=== PATIENT | male | born 1935 | race Caucasian/White ===

== ENCOUNTER → 2018-06-07 | Outpatient (CLI) | payer MEDICARE ==
[2018-06-07 09:54] LABS: HCT 41.5 % (39.0-53.0); HGB 13.5 gm/dL (13.0-17.5); MCHC 32.6 g/dL (31.0-37.0); MCV 98.3 fL (80.0-100.0); Mean Platelet Volume 7.3; Platelet Count 168 k/uL (150-450); RBC 4.22 m/uL (4.30-5.90); RDW 13.7 % (11.5-15.5)
[2018-06-07 10:13] LABS: Magnesium 1.8 mg/dL (1.6-2.3); Potassium 4.9 mmol/L (3.5-5.1)
== END | disposition home or self-care (01) ==
LOC: LABPAT 09:33
PROVIDERS: ATTEND Internal Medicine Interventional Cardiology
DX: Z01.812 Encounter for preprocedural laboratory examination (principal); I35.0 Nonrheumatic aortic (valve) stenosis; R94.39 Abnormal result of other cardiovascular function study; I10 Essential (primary) hypertension; E78.2 Mixed hyperlipidemia
CPT/HCPCS: 36415; 80051; 82565; 82947; 83735; 84520; 85027

== ENCOUNTER 2018-06-17 06:05 | Day surgery (SDC) | payer MEDICARE ==
[2018-06-11 14:05] VITALS: BMI 26.4
[~2018-06-17 06:05] MED LIST: ALPRAZolam 0.25 MG TAB PO PRN; ASPIRIN 325 MG TAB PO ONE
[2018-06-17] MEDS: SODIUM CHLORIDE 0.9% 1,000 ML in EMPTY BAG 1 BAG IV ONE ×2 (06:25→06:30)
[2018-06-17 07:31] VITALS: TEMP 97.9
[2018-06-17 07:34] LABS: Glucose,Whole Blood 160 mg/dL (75-99)
[2018-06-17] MEDS ORDERED: LIDOCAINE 1% INJ 10MG/ML (20 ML MDV) ONE (08:35)
[2018-06-17] MEDS ORDERED: MIDAZOLAM 2 MG/2 ML VIAL ONE (08:35)
[2018-06-17] MEDS ORDERED: VERAPAMIL 2.5 MG/ML 2 ML AMP ONE (08:35)
[2018-06-17] MEDS ORDERED: diphenhydrAMINE 50 MG/ML 1 ML VIAL ONE (08:35)
[2018-06-17] MEDS ORDERED: LIDOCAINE 1% INJ 10MG/ML (20 ML MDV) SQ ONE ×2 (08:55→09:31)
[2018-06-17] MEDS ORDERED: MIDAZOLAM 2 MG/2 ML VIAL IV ONE (08:59)
[2018-06-17] MEDS ORDERED: diphenhydrAMINE 50 MG/ML 1 ML VIAL IVP ONE (08:59)
[2018-06-17] MEDS ORDERED: VERAPAMIL SYRINGE (5 MG/10 ML) INTRAARTER ONE ×2 (08:59→09:41)
[2018-06-17] MEDS ORDERED: HEPARIN SODIUM 1,000 UN/ML (10ML VL) IV ONE (09:00)
[2018-06-17] MEDS ORDERED: NITROGLYCERIN SL TABS 0.4 MG TAB SUBLINGUAL ONE ×2 (09:39→09:40)
[2018-06-17] MEDS ORDERED: IOPAMIDOL-370 100ML BTL INJ ONE (09:41)
[2018-06-17] MEDS ORDERED: RX INFO: IV CONTRAST WAS GIVEN 1 EACH MISC MISCELLANE PRN ×2 (09:46→09:49)
[2018-06-17] MEDS ORDERED: SODIUM CHLORIDE 0.9% 1,000 ML IV SCH (10:00)
--- NOTE | 2018-06-17 11:26 | CC ---
CARDIAC CATHETERIZATION REPORT DATE OF SERVICE: 06/17/2018 PROCEDURE: Left heart catheterization and coronary angiography. PERFORMED BY: Dr. Nir Wen. Moderate conscious sedation time was 49 minutes. The patient was administered Versed and Benadryl and his oxygen saturation, hemodynamics and EKG were were monitored closely. CLINICAL INFORMATION: Mr. Forrest Samayoa is 83-year-old gentleman history of hypertension, hyperlipidemia, type 2 diabetes with mild CKD, who has been having symptoms of exertional shortness of breath and clinically there was evidence of significant change in the aortic valve murmur. In 2013, he had a cardiac cath which revealed no significant obstructive CAD and there was evidence of no gradient across the aortic valve. However, because of a new heart murmur, symptoms of exertional shortness of breath and chest pressure, he was advised coronary angiography and assessment of aortic valve. Risks, benefits, options and rationale were explained. PROCEDURE NOTE: Under local anesthesia and strict aseptic precautions, I placed a 6-Colombian introducer in the right radial artery. I used a JR4 catheter to perform selective coronary angiography of the right coronary artery. There was extreme tortuosity almost like a coil of his arteries in the innominate system. However, I was able to get right coronary injection, but I had a lot of difficulty getting a picture of the left coronary and therefore I switched over to the femoral approach. The sheath was kept in the right radial and I switched over to the right femoral. Under local anesthesia and strict aseptic precautions, a 6-Colombian introducer was placed in the right femoral artery. Using a standard left Susie catheter I performed selective coronary angiography of the left coronary artery and checked LV pressures using a pigtail catheter but did not perform the LV gram. I used about 70 mL of contrast. The sheath was taken out and manual compression used to secure hemostasis. A TR band was applied to the right radial. The patient tolerated procedure well. Saturation of the fingers of the right hand was 97% and good hemostasis was secured in the right femoral sheath. CARDIAC CATHETERIZATION FINDINGS: The left ventricular end-diastolic pressure was 12 mmHg. The gradient across aortic valve on a pullback system was 29 mmHg suggestive of moderate aortic stenosis. CORONARY ANGIOGRAPHY FINDINGS: RIGHT CORONARY ARTERY: This is a codominant vessel has no significant disease in its origin, distally it gives off a PDA branch which is free of significant disease. The PLV branch comes from the circumflex. RCA is a codominant, disease-free vessel that gives off a PDA branch. LEFT MAIN CORONARY ARTERY: This is a short patent vessel that bifurcates immediately into LAD and circumflex. Left main itself is free of significant disease. LEFT ANTERIOR DESCENDING CORONARY ARTERY: Good caliber vessel extends along the anterior wall, gives off septal and diagonal branches, has minor irregularities no significant disease. There is a good-sized diagonal branch in the mid portion that comes off and then the caliber of the vessel decreases and it curves over the apex to supply the inferoapical portion of left ventricle. The LAD has no significant disease, has only minor irregularities. LEFT POSTERIOR CIRCUMFLEX CORONARY ARTERY: This is a codominant vessel gives off a first obtuse marginal and a small second obtuse marginal and distally a PLV branch comes off. The entire circumflex has minor irregularities, no significant disease and this is a codominant vessel. LEFT VENTRICULOGRAM: This was not performed. FINAL IMPRESSION: This patient has a codominant system. No significant coronary artery disease. Normal filling pressures with a moderate aortic stenosis with a peak pullback gradient of 29 mmHg across the aortic valve which represents progression of aortic valve disease, which was not significant in 2014. RECOMMENDATIONS: Findings were discussed with the patient and family. I am recommending that we will pursue medical therapy without intervention and follow aortic valve stenosis noninvasively. I explained to the patient the findings and he will be discharged later today if he remains stable. I will see him in the office on Sunday at 3:45 p.m. MMMARCELLA / LAURENN: [phone] /
[2018-06-17 11:54] VITALS: PULSE 68
[2018-06-17 12:02] VITALS: BP 132/62; RESP 18
== END 2018-06-17 17:23 | disposition home or self-care (01) ==
LOC: CATHCVL 06:05
PROVIDERS: ATTEND Internal Medicine Interventional Cardiology
DX: I35.0 Nonrheumatic aortic (valve) stenosis (principal); R09.89 Other specified symptoms and signs involving the circulatory and respiratory systems; I10 Essential (primary) hypertension; E78.00 Pure hypercholesterolemia, unspecified; E13.22 Other specified diabetes mellitus with diabetic chronic kidney disease; I12.9 Hypertensive chronic kidney disease with stage 1 through stage 4 chronic kidney disease, or unspecified chronic kidney disease; E11.22 Type 2 diabetes mellitus with diabetic chronic kidney disease; N18.9 Chronic kidney disease, unspecified; Z79.84 Long term (current) use of oral hypoglycemic drugs; Z79.82 Long term (current) use of aspirin; Z79.899 Other long term (current) drug therapy
CPT/HCPCS: 93458; C1769 ×3; C1894 ×2; J2250; J1200; J2001; J1644; Q9967

== ENCOUNTER 2019-06-09 10:13 | Observation (INO) | payer MEDICARE ==
[2019-06-09] MEDS ORDERED: ASPIRIN 81 MG PO STA (10:46)
[2019-06-09] MEDS ORDERED: NITROGLYCERIN SL TABS 0.4 MG TAB SUBLINGUAL STA ×3 (10:46)
--- NOTE | 2019-06-09 10:47 | ED ---
General Adult HPI - General Chief complaint: Chest Pain Stated complaint: Chest pressure,Shoulder/arm pain Time Seen by Provider: 06/09/19 10:37 Source: patient, RN notes reviewed Mode of arrival: wheelchair Limitations: no limitations - History of Present Illness Initial comments: Patient is a pleasant 84-year-old male presenting to the emergency Department with chest discomfort. Onset of symptoms was a day or 2 ago. Patient has an ache in his chest with some in the left shoulder as well. Symptoms worsen with exertion. Patient does have some associated dyspnea. Occasional lightheadedness. No nausea or diaphoresis. Symptoms are somewhat similar to previous cardiac problems. Patient also has known valve problem. - Related Data Home Medications Medication Instructions Recorded Confirmed Aspirin 81 mg PO DAILY 02/14/14 06/09/19 Ezetimibe [Zetia] 10 mg PO DAILY 02/14/14 06/09/19 Metoprolol Succinate [Toprol XL] 25 mg PO DAILY 02/14/14 06/09/19 Ramipril [Altace] 5 mg PO DAILY 02/14/14 06/09/19 Rosuvastatin Calcium [Crestor] 5 mg PO HS 02/14/14 06/09/19 Testosterone Cypionate 200 mg IM Q30D 02/14/14 06/09/19 [Depo-Testosterone] glipiZIDE [Glucotrol XL] 2.5 mg PO DAILY 02/14/14 06/09/19 metFORMIN HCL 500 mg PO TID 02/14/14 06/09/19 sitaGLIPtin [Januvia] 100 mg PO DAILY 02/14/14 06/09/19 Glucosam/Dhaval-Msm1/C/Kamar/Bosw 1 tab PO DAILY 06/09/19 06/09/19 [Glucosamine-Chondroitin Tablet] Multivitamins, Thera [Multivitamin 1 tab PO DAILY 06/09/19 06/09/19 (formulary)] Previous Rx's Medication Instructions Recorded amLODIPine BESYLATE [Norvasc] 10 mg PO DAILY #30 tab 02/17/14 Allergies Allergy/AdvReac Type Severity Reaction Status Date / Time flu shot Allergy Unknown Unknown Uncoded 06/09/19 11:00 Review of Systems ROS Statement: Those systems with pertinent positive or pertinent negative responses have been documented in the HPI. ROS Other: All systems not noted in ROS Statement are negative. Constitutional: Denies: fever Eyes: Denies: eye pain ENT: Denies: ear pain Respiratory: Reports: as per HPI. Denies: cough Cardiovascular: Reports: as per HPI, chest pain Endocrine: Reports: fatigue Gastrointestinal: Denies: abdominal pain, nausea Genitourinary: Denies: dysuria Musculoskeletal: Denies: back pain Skin: Denies: rash Neurological: Denies: weakness Past Medical History Past Medical History: Coronary Artery Disease (CAD), Diabetes Mellitus, Hyperlipidemia, Hypertension History of Any Multi-Drug Resistant Organisms: None Reported Past Surgical History: Cholecystectomy, Heart Catheterization, Hernia Repair, Orthopedic Surgery Additional Past Surgical History / Comment(s): carpel tunnel surgery right hand Past Anesthesia/Blood Transfusion Reactions: No Reported Reaction Past Psychological History: No Psychological Hx Reported Smoking Status: Never smoker Past Alcohol Use History: Occasional Past Drug Use History: None Reported - Past Family History Mother Family Medical History: Cancer Additional Family Medical History / Comment(s): Breast General Exam Limitations: no limitations General appearance: alert, in no apparent distress Head exam: Present: atraumatic Eye exam: Present: normal appearance, PERRL ENT exam: Present: normal oropharynx Neck exam: Present: normal inspection Respiratory exam: Present: normal lung sounds bilaterally. Absent: chest wall tenderness Cardiovascular Exam: Present: regular rate, normal rhythm Expanded Peripheral pulses: 2+: Radial (R), Radial (L), Posterior Tibialis (R), Posterior Tibialis (L) GI/Abdominal exam: Present: soft. Absent: tenderness Extremities exam: Present: normal inspection, full ROM. Absent: tenderness, pedal edema, calf tenderness Back exam: Present: normal inspection. Absent: tenderness Neurological exam: Present: alert Psychiatric exam: Present: normal affect, normal mood Skin exam: Present: normal color Course Vital Signs 06/09/19 06/09/19 10:21 10:23 Temperature 98.2 F Pulse Rate 72 Pulse Rate [ 70 Protective Signal Repairer ] Respiratory 18 Rate Blood Pressure 125/67 O2 Sat by Pulse 97 Oximetry - Reevaluation(s) Reevaluation #1: 06/09/19 10:47 Cardiology paged 06/09/19 10:54 Case was discussed with Dr. Chawla who does recommend heparin and nitro paste and will come evaluate the patient. 06/09/19 12:33 Patient reevaluated and resting comfortably in bed. Patient was seen by Dr. Chawla who was not worried about acute findings with the EKG. d Dimer was somewhat elevated and computed tomography scan has been ordered. Dr. Weaver has been paged for admission for [facility] covering for Dr. Gaytan. Patient is updated. Heparin has been started. Medical Decision Making - Lab Data Result diagrams: 06/09/19 11:00 06/09/19 11:00 Lab Results 06/09/19 06/09/19 06/09/19 Range/Units 11:00 11:00 11:00 WBC 7.2 (3.8-10.6) k/uL RBC 4.25 L (4.30-5.90) m/uL Hgb 14.0 (13.0-17.5) gm/dL Hct 41.2 (39.0-53.0) % MCV 97.0 (80.0-100.0) fL MCH 32.9 (25.0-35.0) pg MCHC 33.9 (31.0-37.0) g/dL RDW 15.5 (11.5-15.5) % Plt Count 167 (150-450) k/uL Neutrophils % 70 % Lymphocytes % 19 % Monocytes % 6 % Eosinophils % 3 % Basophils % 1 % Neutrophils # 5.0 (1.3-7.7) k/uL Lymphocytes # 1.4 (1.0-4.8) k/uL Monocytes # 0.4 (0-1.0) k/uL Eosinophils # 0.2 (0-0.7) k/uL Basophils # 0.0 (0-0.2) k/uL PT 10.4 (9.0-12.0) sec INR 1.0 (<1.2) APTT 23.3 (22.0-30.0) sec D-Dimer 1.50 H (<0.60) mg/L FEU Sodium 139 (137-145) mmol/L Potassium 4.8 (3.5-5.1) mmol/L Chloride 103 (98-107) mmol/L Carbon Dioxide 25 (22-30) mmol/L Anion Gap 11 mmol/L BUN 42 H (9-20) mg/dL Creatinine 1.47 H (0.66-1.25) mg/dL Est GFR (CKD-EPI)AfAm 50 (>60 ml/min/1.73 sqM) Est GFR (CKD-EPI)NonAf 44 (>60 ml/min/1.73 sqM) Glucose 170 H (74-99) mg/dL Calcium 9.3 (8.4-10.2) mg/dL Magnesium 2.0 (1.6-2.3) mg/dL Total Bilirubin 0.4 (0.2-1.3) mg/dL AST 27 (17-59) U/L ALT 35 (21-72) U/L Alkaline Phosphatase 71 (38-126) U/L Troponin I (0.000-0.034) ng/mL NT-Pro-B Natriuret Pep pg/mL Total Protein 6.9 (6.3-8.2) g/dL Albumin 4.0 (3.5-5.0) g/dL 06/09/19 06/09/19 Range/Units 11:00 11:00 WBC (3.8-10.6) k/uL RBC (4.30-5.90) m/uL Hgb (13.0-17.5) gm/dL Hct (39.0-53.0) % MCV (80.0-100.0) fL MCH (25.0-35.0) pg MCHC (31.0-37.0) g/dL RDW (11.5-15.5) % Plt Count (150-450) k/uL Neutrophils % % Lymphocytes % % Monocytes % % Eosinophils % % Basophils % % Neutrophils # (1.3-7.7) k/uL Lymphocytes # (1.0-4.8) k/uL Monocytes # (0-1.0) k/uL Eosinophils # (0-0.7) k/uL Basophils # (0-0.2) k/uL PT (9.0-12.0) sec INR (<1.2) APTT (22.0-30.0) sec D-Dimer (<0.60) mg/L FEU Sodium (137-145) mmol/L Potassium (3.5-5.1) mmol/L Chloride (98-107) mmol/L Carbon Dioxide (22-30) mmol/L Anion Gap mmol/L BUN (9-20) mg/dL Creatinine (0.66-1.25) mg/dL Est GFR (CKD-EPI)AfAm (>60 ml/min/1.73 sqM) Est GFR (CKD-EPI)NonAf (>60 ml/min/1.73 sqM) Glucose (74-99) mg/dL Calcium (8.4-10.2) mg/dL Magnesium (1.6-2.3) mg/dL Total Bilirubin (0.2-1.3) mg/dL AST (17-59) U/L ALT (21-72) U/L Alkaline Phosphatase (38-126) U/L Troponin I <0.012 (0.000-0.034) ng/mL NT-Pro-B Natriuret Pep 210 pg/mL Total Protein (6.3-8.2) g/dL Albumin (3.5-5.0) g/dL - Radiology Data Radiology results: image reviewed (Chest x-ray shows no acute process) Critical Care Time Critical Care Time: Yes Total Critical Care Time: 31 Disposition Clinical Impression: Unstable angina pectoris Dis[facility] Is patient prescribed a controlled substance at d/c from ED?: No Referrals: Bull Virgen MD [Primary Care Provider] - 1-2 days Decision Time: 12:35
[2019-06-09] MEDS ORDERED: NITROGLYCERIN OINT 1 INCH/GM PACKET TOPICAL STA (10:53)
[2019-06-09] MEDS ORDERED: HEPARIN SODIUM,PORCINE 5,000 UNIT/ML 1 ML VIAL IV ONE (10:53)
[2019-06-09] MEDS ORDERED: HEPARIN SODIUM,PORCINE 5,000 UNIT/ML 1 ML VIAL IV PRN (10:53)
[2019-06-09] MEDS ORDERED: HEPARIN SOD,PORK IN 0.45% NACL 25,000 UNIT in 0.45% NACL 1 250ML.BAG IV SCH (11:00)
--- NOTE | 2019-06-09 11:24 | XR ---
EXAMINATION TYPE: XR chest 1V portable DATE OF EXAM: 06/09/2019 COMPARISON: 02/14/2014 HISTORY: Left shoulder pain and arm pain as well as chest pain starting yesterday TECHNIQUE: Single frontal view of the chest is obtained. FINDINGS: There is a mildly enlarged cardiac mediastinal silhouette. Mild degenerative changes of th e left shoulder and moderate of the right shoulder. No focal consolidation, pleural effusion or pneum othorax. IMPRESSION: No acute cardiopulmonary process.
[2019-06-09 11:40] LABS: Basophils % (A) 1 %; Eosinophils # (A) 0.2 k/uL (0-0.7); Eosinophils % (A) 3 %; HCT 41.2 % (39.0-53.0); Lymphocytes # (A) 1.4 k/uL (1.0-4.8); Lymphocytes % (A) 19 %; MCH 32.9 pg (25.0-35.0); MCHC 33.9 g/dL (31.0-37.0); Mean Platelet Volume 7.2; Monocytes # (A) 0.4 k/uL (0-1.0); Monocytes % (A) 6 %; Neutrophils % (A) 70 %; Platelet Count 167 k/uL (150-450); RBC 4.25 m/uL (4.30-5.90); RDW 15.5 % (11.5-15.5); WBC 7.2 k/uL (3.8-10.6)
[2019-06-09 11:44] LABS: Prothrombin Time 10.4 sec (9.0-12.0)
[2019-06-09 11:45] LABS: Partial Thromboplastin Time 23.3 sec (22.0-30.0)
[2019-06-09 11:57] LABS: Calcium 9.3 mg/dL (8.4-10.2); Potassium 4.8 mmol/L (3.5-5.1); Total Bilirubin 0.4 mg/dL (0.2-1.3); Total Protein 6.9 g/dL (6.3-8.2)
[2019-06-09 12:09] LABS: D-Dimer 1.5 mg/L FEU (<0.60)
[2019-06-09] MEDS ORDERED: NITROGLYCERIN SL TABS 0.4 MG TAB SUBLINGUAL PRN (12:31)
--- NOTE | 2019-06-09 13:17 | CT ---
EXAMINATION TYPE: CT angio chest DATE OF EXAM: 06/09/2019 COMPARISON: Chest x-ray of the same date HISTORY: chest pain CT DLP: 408.4 mGycm. Automated Exposure Control for Dose Reduction was Utilized. CONTRAST: CTA scan of the thorax is performed with IV Contrast, patient injected with 80 mL of Isovue 300, pulm onary embolism protocol. MIP Images are created on CT scanner and reviewed. FINDINGS: LUNGS: There is minimal bibasilar subsegmental dependent atelectasis and linear pleural parenchymal s carring of the left lung base. No focal consolidation, pleural effusion, or pneumothorax. No suspicio us pulmonary mass. Very mild peribronchial cuffing of the inferior lungs. MEDIASTINUM: There is satisfactory enhancement of the pulmonary artery and its branches, there is no CT evidence for pulmonary embolism. Mild coronary artery calcifications are seen. Heart is mildly enl arged with trace pericardial effusion. There are no greater than 1 cm hilar or mediastinal lymph nod es. OTHER: There is suspected mild degree hepatic steatosis however this finding is limited in evaluatio n in the angiographic phase. Small hiatal hernia seen. Gallbladder surgically absent. Flowing anterio r osteophytes throughout the thoracic spine suggest diffuse idiopathic skeletal hyperostosis. IMPRESSION: 1. No evidence of pulmonary embolus. 2. Minimal bibasilar subsegmental atelectasis or pleural parenchymal scarring with minimal peribronch ial cuffing that may relate to reactive or infectious airway disease. 3. Small hiatal hernia.
[2019-06-09 15:30] VITALS: BMI 26.2
--- NOTE | 2019-06-09 15:51 | P.HPIM ---
History of Present Illness H&P Date: 06/09/19 Chief Complaint: Chest pain The patient is a 84-year-old male with a past medical history of type 2 diabetes, essential hypertension, dyslipidemia, moderate aortic stenosis, CKD stage III who presents to the ER via private vehicle with chief complaint of chest pain. Apparently the patient began having intermittent episodes of left- sided chest discomfort described as pressure achy in sensation with radiation into his shoulder and posterior scapular area with some associated shortness of breath, the patient denies any diaphoresis, nausea/vomiting, denies palpi tations, denies presyncope lightheadedness or dizziness, denies focal weakness or slurred speech. Apparently the patient reports tripping on a staircase over a week ago and fell on his left side but does not take the pain is related to that although stating that pain is worse with movement. Referral records indicates the patient had a left heart catheterization approximately a year ago in 2018 that showed normal coronary arteries and moderate aortic stenosis. In the ER the patient had a comprehensive workup EKG showed sinus mechanism with no suggestion of any acute ischemia troponin was less than 0.012, NT proBNP was 210, creatinine 1.47, d-dimer 1.5. Chest x-ray showed no acute cardiopul monary process. CTA of the chest was negative for PE with minimal bibasilar subsegmental atelectasis or pleural parenchymal scarring. Review of Systems Pertinent positives per HPI all other systems otherwise negative Past Medical History Past Medical History: Coronary Artery Disease (CAD), Chest Pain / Angina, Diabetes Mellitus, Hyperlipidemia, Hypertension, Mitral Valve Prolapse (MVP), Osteoarthritis (OA) Additional Past Medical History / Comment(s): Aortic valve disorder - leaky History of Any Multi-Drug Resistant Organisms: None Reported Past Surgical History: Cholecystectomy, Heart Catheterization, Hernia Repair, Orthopedic Surgery Additional Past Surgical History / Comment(s): carpel tunnel surgery right hand, left knee total replacement Past Anesthesia/Blood Transfusion Reactions: No Reported Reaction Past Psychological History: No Psychological Hx Reported Smoking Status: Never smoker Past Alcohol Use History: Occasional Past Drug Use History: None Reported - Past Family History Mother Family Medical History: Cancer Additional Family Medical History / Comment(s): Breast Medications and Allergies Home Medications Medication Instructions Recorded Confirmed Type Aspirin 81 mg PO DAILY 02/14/14 06/09/19 History Ezetimibe [Zetia] 10 mg PO DAILY 02/14/14 06/09/19 History Metoprolol Succinate [Toprol XL] 25 mg PO DAILY 02/14/14 06/09/19 History Ramipril [Altace] 5 mg PO DAILY 02/14/14 06/09/19 History Rosuvastatin Calcium [Crestor] 5 mg PO HS 02/14/14 06/09/19 History Testosterone Cypionate 200 mg IM Q30D 02/14/14 06/09/19 History [Depo-Testosterone] glipiZIDE [Glucotrol XL] 2.5 mg PO DAILY 02/14/14 06/09/19 History metFORMIN HCL 500 mg PO TID 02/14/14 06/09/19 History sitaGLIPtin [Januvia] 100 mg PO DAILY 02/14/14 06/09/19 History amLODIPine BESYLATE [Norvasc] 10 mg PO DAILY #30 tab 02/17/14 06/09/19 Rx Glucosam/Dhaval-Msm1/C/Kamar/Bosw 1 tab PO DAILY 06/09/19 06/09/19 History [Glucosamine-Chondroitin Tablet] Multivitamins, Thera [Multivitamin 1 tab PO DAILY 06/09/19 06/09/19 History (formulary)] Allergies Allergy/AdvReac Type Severity Reaction Status Date / Time flu shot Allergy Unknown Unknown Uncoded 06/09/19 11:00 Physical Exam Vitals: Vital Signs Temp Pulse Pulse Resp BP BP Pulse Ox 06/09/19 15:02 97.5 F L 56 L 19 112/73 99 06/09/19 14:01 60 18 111/63 97 06/09/19 10:23 70 06/09/19 10:21 98.2 F 72 18 125/67 97 Intake and Output 06/09/19 06/09/19 06/09/19 06:59 14:59 22:59 Other: Weight 90.718 kg Constitutional: No acute distress, conversant, pleasant Eyes: Anicteric sclerae, moist conjunctiva, no lid-lag, PERRLA ENMT: NC/AT,Oropharynx clear, no erythema, exudates Neck:Supple, FROM, no masses, or JVD, No carotid bruits; No thyromegaly Lungs: Clear to auscultation, Clear to percussion, Normal respiratory effort, no accessory muscle use Cardiovascular: Heart regular in rate and rhythm, No murmurs, gallops, or rubs no peripheral edema Abdominal: Soft Nontender, nom distended, no guarding, no rebound or rigidity, Normoactive bowel sounds No hepatomegaly, No splenomegaly, No palpable mass No abdominal wall hernia noted Skin: Normal temperature, tone, texture, turgor, No induration No subcutaneous nodules, No rash, lesions, No ulcers Extremities:No digital cyanosis No clubbing, Pedal pulses intact and symmetrical Radial pulses intact and symmetrical Normal gait and station, No calf tenderness Psychiatric: Alert and oriented to person, place and time, Appropriate affect Intact judgement Neuro: Muscles Strength 5/5 in all 4 extremities, Sensation to light touch grossly present throughout, Cranial nerves II-XII grossly intact. No focal sensory deficits Results CBC & Chem 7: 06/09/19 11:00 06/09/19 11:00 Labs: Abnormal Lab Results - Last 24 Hours (Table) 06/09/19 06/09/19 06/09/19 Range/Units 11:00 11:00 11:00 RBC 4.25 L (4.30-5.90) m/uL D-Dimer 1.50 H (<0.60) mg/L FEU BUN 42 H (9-20) mg/dL Creatinine 1.47 H (0.66-1.25) mg/dL Glucose 170 H (74-99) mg/dL Thrombosis Risk Factor Assmnt - Choose All That Apply Any of the Below Risk Factors Present?: Yes Each Factor Represents 1 point: Obesity (BMI >25) Other Risk Factors: Yes Each Risk Factor Represents 3 Points: Age 75 years or older Other congenital or acquired thrombophilia - If yes, enter type in comment: No Thrombosis Risk Factor Assessment Total Risk Factor Score: 4 Thrombosis Risk Factor Assessment Level: Moderate Risk Assessment and Plan (1) Chest pain Current Visit: Yes Status: Acute Code(s): R07.9 - CHEST PAIN, UNSPECIFIED SNOMED Code(s): 91967723 (2) Type 2 diabetes mellitus with hyperglycemia Current Visit: Yes Status: Acute Code(s): E11.65 - TYPE 2 DIABETES MELLITUS WITH HYPERGLYCEMIA SNOMED Code(s): 627494952531450 (3) Essential hypertension Current Visit: Yes Status: Acute Code(s): I10 - ESSENTIAL (PRIMARY) HYPERT ENSION SNOMED Code(s): 54232472 (4) Hyperlipidemia Current Visit: Yes Status: Acute Code(s): E78.5 - HYPERLIPIDEMIA, UNSPECIFIED SNOMED Code(s): 75625768 (5) Aortic stenosis Current Visit: Yes Status: Chronic Code(s): I35.0 - NONRHEUMATIC AORTIC (VALVE) STENOSIS SNOMED Code(s): 22783826 Plan: The patient's is placed in observation anticipate a less than 2 midnight stay with chest pain with known CAD risk factors with need to rule out ACS. Workup thus far as been negative EKG showing sinus mechanism negative for any acute ischemia initial troponin is also negative less than 0.012. CTA of the chest has ruled out PE. Will order continue to trend troponins, check lipid panel, echocardiogram, consult cardiology for further recommendations. Previous left heart cath 06/25 indicated moderate aortic stenosis but no coronary disease. We'll continue his home medications except for metformin will initiate sliding scale protocol. We'll order a x-ray of the left shoulder given history of trauma. The patient is continued on routine chest pain orders including daily aspirin and is also started on heparin drip from the ER which will be continued. I will continue to monitor his clinical course CODE STATUS: DNI ( CPR only) Discussed plan of care with: Patient and his /daughter Anticipated discharge: 1-[address]; home
--- NOTE | 2019-06-09 16:22 | XR ---
EXAMINATION TYPE: XR shoulder complete LT DATE OF EXAM: 06/09/2019 CLINICAL HISTORY: Left shoulder pain after fall one week ago TECHNIQUE: Three views of the left shoulder are obtained. COMPARISON: None. FINDINGS: There is no acute fracture/dislocation evident in the left shoulder. The acromioclavicula r and glenohumeral joint spaces appear aligned. There is joint space narrowing and small marginal os teophytes of the left acromioclavicular joint and glenohumeral joint. The visualized ribs are intact and unremarkable. IMPRESSION: 1. No acute fracture or dislocation in the left shoulder. 2. 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
[2019-06-09] MEDS ORDERED: metFORMIN 500 MG TAB PO SCH (17:30)
[2019-06-09] MEDS: NITROGLYCERIN OINT 1 INCH/GM PACKET TOPICAL SCH ×2 (18:09→23:23)
[2019-06-09] MEDS ORDERED: ATORVASTATIN 10 MG TAB PO SCH (21:00)
[2019-06-09 21:33] LABS: Glucose,Whole Blood 199 mg/dL (75-99)
[2019-06-09] MEDS ORDERED: LINAGLIPTIN 5 MG TABLET PO SCH (22:00)
[2019-06-09] MEDS ORDERED: EZETIMIBE 10 MG TAB PO SCH (22:00)
--- NOTE | 2019-06-09 22:32 | CONS ---
CONSULTATION CHIEF COMPLAINT: Chest pain. This is an an 84-year-old gentleman with history of coronary artery disease, hypertension, diabetes, dyslipidemia, renal insufficiency, and aortic stenosis who presents to hospital complaining of precordial chest pain. He describes it as sharp, zczb-ru-avmgayuy precordial chest pain that has been going on over the last 2 days with some left shoulder pain. The patient had a cardiac catheterization last year that did not reveal significant coronary artery disease. The patient had moderate aortic stenosis. The EKG shows sinus rhythm with Q-waves in the inferior leads. The patient is chest pain free at the time of my evaluation. He is on IV heparin and nitro paste. PAST MEDICAL HISTORY: Significant for diabetes, hypertension, dyslipidemia. MEDICATIONS: Include Crestor 5 mg daily, metformin, Januvia, Glucotrol, Norvasc, Caltrate,Toprol, Zetia and aspirin. ALLERGIES: FLU SHOT. FAMILY HISTORY: Negative for premature coronary artery disease. SOCIAL HISTORY: Negative for current smoking, EtOH abuse, or drug abuse. REVIEW OF SYSTEMS: HEENT is unremarkable. Cardiac as described above. Respiratory as described above. GI negative. Genitourinary negative. Allergy negative. Skin negative. Musculoskeletal significant for arthritis. Psychosocial negative. Endocrine negative. Constitutional negative. Oncological negative. Rest of the system review is not relevant. EXAM: He is comfortable at rest. Vital signs are stable. There is no jugular venous distention. Carotid upstroke is normal. There is no bruit. Chest exam reveals good air entry bilaterally. Heart exam reveals first and second heart sounds. Grade 4/6 ejection systolic murmur in the aortic area. Abdomen is soft. Exam of the extremities did not reveal any edema. Peripheral pulses are palpable. EKG shows sinus rhythm with left axis deviation. ASSESSMENT: 1. Precordial chest pain. 2. Moderate aortic stenosis. 3. Elevated D-dimer. PLAN: The patient had normal coronaries on a cardiac catheterization within the last 1 year. I doubt this chest discomfort is cardiac in origin. While he has aortic stenosis, it is not bad enough to be causing symptoms at this time. Please obtain a V/Q scan given the elevated D-dimer. Watch him overnight. If he is doing fine tomorrow, we should be able to discharge him home and arrange outpatient followup with Dr. Nir Wen. MMODL / IJN: [id number] /
[2019-06-10] MEDS: NITROGLYCERIN OINT 1 INCH/GM PACKET TOPICAL SCH (06:31)
[2019-06-10 06:35] LABS: Basophils % (A) 1 %; Eosinophils # (A) 0.3 k/uL (0-0.7); Eosinophils % (A) 5 %; HGB 12.9 gm/dL (13.0-17.5); Lymphocytes # (A) 1.7 k/uL (1.0-4.8); Lymphocytes % (A) 24 %; MCH 32.3 pg (25.0-35.0); MCHC 33.1 g/dL (31.0-37.0); MCV 97.6 fL (80.0-100.0); Mean Platelet Volume 7.6; Monocytes # (A) 0.5 k/uL (0-1.0); Monocytes % (A) 7 %; Neutrophils # (A) 4.4 k/uL (1.3-7.7); Neutrophils % (A) 62 %; Platelet Count 162 k/uL (150-450); RDW 15.3 % (11.5-15.5); WBC 7.1 k/uL (3.8-10.6)
[2019-06-10 06:53] LABS: Glucose,Whole Blood 171 mg/dL (75-99)
[2019-06-10 07:27] LABS: Cholesterol 105 mg/dL (<200); HDL Cholesterol 48 mg/dL (40-60); LDL Cholesterol,Calculated 42 mg/dL (0-99); Triglycerides 76 mg/dL (<150)
[2019-06-10 07:33] VITALS: BP 146/74; PULSE 63; RESP 17; TEMP 97.7
--- NOTE | 2019-06-10 08:49 | P.PN ---
Progress Note - Text Progress Note Date: 06/10/19 This is an 84-year-old gentleman who sees Dr. Wen in the office as an outpatient with a past medical history significant for coronary artery disease, aortic stenosis, hypertension, and dyslipidemia, who was admitted to the hospital with atypical chest discomfort and ruled out for acute coronary event. He underwent a heart catheterization a year ago and that revealed no evidence of occlusive CAD. On follow-up with the patient today, he seems to be asymptomatic from the cardiovascular standpoint overview. From the cardiac standpoint, the patient can be discharged home and follow-up with Dr. Wen as an outpatient.
[2019-06-10] MEDS ORDERED: LINAGLIPTIN 5 MG TABLET PO SCH (09:00)
[2019-06-10] MEDS ORDERED: amLODIPine 10 MG TAB PO SCH (09:00)
[2019-06-10] MEDS ORDERED: EZETIMIBE 10 MG TAB PO SCH (09:00)
[2019-06-10] MEDS ORDERED: ASPIRIN 325 MG TAB PO SCH (09:00)
[2019-06-10] MEDS ORDERED: METOPROLOL SUCCINATE (ER) 25 MG TAB.ER.24H PO SCH (09:00)
[2019-06-10] MEDS ORDERED: LISINOPRIL 20 MG TAB PO SCH (09:00)
--- NOTE | 2019-06-10 09:22 | P.DS ---
Providers Date of admission: 06/09/19 13:27 Expected date of discharge: 06/10/19 Attending physician: Maryam Good MD Consults: 06/09/19 12:31 Consult Physician Urgent Consulting Provider: Nicolás Cohen Consult Reason/Comments: ua Do you want consulting provider notified?: Already Contacted Primary care physician: Bull Virgen - Discharge Diagnosis(es) (1) Chest pain Current Visit: Yes Status: Acute (2) Type 2 diabetes mellitus with hyperglycemia Current Visit: Yes Status: Acute (3) Essential hypertension Current Visit: Yes Status: Acute (4) Hyperlipidemia Current Visit: Yes Status: Acute (5) Aortic stenosis Current Visit: Yes Status: Chronic Hospital Course: The patient is a 84-year-old male with a past medical history of essential hypertension , dyslipidemia , type 2 diabetes tand moderate aortic stenosis hat was admitted with atypical chest pain. His workup was essentially negative his EKG showed sinus mechanism without any suggestion of acute ischemia, troponins were negative at less than 0.0123. The patient is known to have elevated d-dimer subsequent CTA of the chest was negative for PE. But echocardiogram was ordered and results are pending, the patient was seen by cardiology Dr. Crandall and cleared for discharge back home. The patient is discharged in stable condition this discharge process took approximately 30 minutes. Focused exam cardiovascular: Regular rate and rhythm, holosystolic ejection murmur Patient Condition at Discharge: Good Plan - Discharge Summary Discharge Rx Participant: No New Discharge Prescriptions: Continue metFORMIN HCL 500 mg PO TID Metoprolol Succinate [Toprol XL] 25 mg PO DAILY sitaGLIPtin [Januvia] 100 mg PO DAILY glipiZIDE [Glucotrol XL] 2.5 mg PO DAILY Rosuvastatin Calcium [Crestor] 5 mg PO HS Ramipril [Altace] 5 mg PO DAILY Aspirin 81 mg PO DAILY Testosterone Cypionate [Depo-Testosterone] 200 mg IM Q30D Ezetimibe [Zetia] 10 mg PO DAILY amLODIPine BESYLATE [Norvasc] 10 mg PO DAILY #30 tab Multivitamins, Thera [Multivitamin (formulary)] 1 tab PO DAILY Glucosam/Dhaval-Msm1/C/Kamar/Bosw [Glucosamine-Chondroitin Tablet] 1 tab PO DAILY Discharge Medication List Aspirin 81 mg PO DAILY 02/14/14 [History] Ezetimibe [Zetia] 10 mg PO DAILY 02/14/14 [History] Metoprolol Succinate [Toprol XL] 25 mg PO DAILY 02/14/14 [History] Ramipril [Altace] 5 mg PO DAILY 02/14/14 [History] Rosuvastatin Calcium [Crestor] 5 mg PO HS 02/14/14 [History] Testosterone Cypionate [Depo-Testosterone] 200 mg IM Q30D 02/14/14 [History] glipiZIDE [Glucotrol XL] 2.5 mg PO DAILY 02/14/14 [History] metFORMIN HCL 500 mg PO TID 02/14/14 [History] sitaGLIPtin [Januvia] 100 mg PO DAILY 02/14/14 [History] amLODIPine BESYLATE [Norvasc] 10 mg PO DAILY #30 tab 02/17/14 [Rx] Glucosam/Dhaval-Msm1/C/Kamar/Bosw [Glucosamine-Chondroitin Tablet] 1 tab PO DAILY 06/09/19 [History] Multivitamins, Thera [Multivitamin (formulary)] 1 tab PO DAILY 06/09/19 [History] Follow up Appointment(s)/Referral(s): Bull Virgen MD [Primary Care Provider] - 1-2 days
--- NOTE | 2019-06-10 11:36 | ECHOF ---
Referral Reason:chest pain, mod MEASUREMENTS -------- HEIGHT: 180.3 cm WEIGHT: 90.7 kg BP: RVIDd: 3.4 cm (< 3.3) IVSd: 1.6 cm (0.6 - 1.1) LVIDd: 2.9 cm (3.9 - 5.3) LVPWd: 1.5 cm (0.6 - 1.1) IVSs: 2.0 cm LVIDs: 2.1 cm LVPWs: 2.2 cm LA Diam: 2.9 cm (2.7 - 3.8) LAESV Index (A-L): 41.34 ml/m Ao Diam: 3.8 cm (2.0 - 3.7) MV EXCURSION: 12.364 mm (> 18.000) MV EF SLOPE: 19 mm/s (70 - 150) EPSS: 1.0 cm MV E Dale: 1.03 m/s MV DecT: 360 ms MV A Dale: 1.55 m/s MV E/A Ratio: 0.66 AV maxP.89 mmHg AV meanP.85 mmHg AR PHT: 951 ms RAP: 5.00 mmHg RVSP: 31.73 mmHg FINDINGS -------- Resting bradycardia (HR<60bpm). This was a technically adequate study. The left ventricular size is normal. There is moderate concentric left ventricular hypertrophy. O verall left ventricular systolic function is normal with, an EF between 60 - 65 %. Diastolic dysfun ction The right ventricle is mildly enlarged. LA is severely dilated >40 ml/m2 The right atrium is normal in size. Interatrial and interventricular septum intact. There is moderate aortic valve sclerosis. There is moderate aortic regurgitation. There is modera te aortic stenosis present. Peak/mean gradient across the Aortic Valve is 51.89mmHg / 33.85mmHg. The mitral valve leaflets are mildly thickened. Moderate mitral annular calcification present. T he peak and mean MV gradients are 14.25mmHg 3.77mmHg as measured by doppler. Mild mitral stenosis. Bgyv-bc-euyiswlc tricuspid regurgitation present. Right ventricular systolic pressure is normal at < 35 mmHg. Trace/mild (physiologic) pulmonic regurgitation. The aortic root is dilated measuring 3.8cm. Normal inferior vena cava with normal inspiratory collapse consistent with estimated right atrial pre ssure of 5 mmHg. There is no pericardial effusion. CONCLUSIONS -------- 1. Resting bradycardia (HR<60bpm). 2. This was a technically adequate study. 3. The left ventricular size is normal. 4. There is moderate concentric left ventricular hypertrophy. 5. Overall left ventricular systolic function is normal with, an EF between 60 - 65 %. 6. Diastolic dysfunction 7. The right ventricle is mildly enlarged. 8. LA is severely dilated >40 ml/m2 9. The right atrium is normal in size. 10. Interatrial and interventricular septum intact. 11. There is moderate aortic valve sclerosis. 12. There is moderate aortic regurgitation. 13. There is moderate aortic stenosis present. 14. Peak/mean gradient across the Aortic Valve is 51.89mmHg / 33.85mmHg. 15. The mitral valve leaflets are mildly thickened. 16. The peak and mean MV gradients are 14.25mmHg 3.77mmHg as measured by doppler. 17. Mild mitral stenosis. 18. Eotc-ec-hvblobgr tricuspid regurgitation present. 19. Right ventricular systolic pressure is normal at < 35 mmHg. 20. Trace/mild (physiologic) pulmonic regurgitation. 21. The aortic root is dilated measuring 3.8cm. 22. Normal inferior vena cava with normal inspiratory collapse consistent with estimated right atrial pressure of 5 mmHg. 23. There is no pericardial effusion. FINISHED CARPET INSPECTOR: Vicki Trotter RDCS
== END 2019-06-10 11:07 ==
LOC: EC 10:13 → 1SOBS 13:27
PROVIDERS: ADMIT Family Medicine; ATTEND Family Medicine
DX: R07.89 Other chest pain (principal); R79.89 Other specified abnormal findings of blood chemistry; I12.9 Hypertensive chronic kidney disease with stage 1 through stage 4 chronic kidney disease, or unspecified chronic kidney disease; N18.3 Chronic kidney disease, stage 3 (moderate); E11.22 Type 2 diabetes mellitus with diabetic chronic kidney disease; I25.10 Atherosclerotic heart disease of native coronary artery without angina pectoris; I08.0 Rheumatic disorders of both mitral and aortic valves; E78.5 Hyperlipidemia, unspecified; E11.65 Type 2 diabetes mellitus with hyperglycemia; M19.012 Primary osteoarthritis, left shoulder; K44.9 Diaphragmatic hernia without obstruction or gangrene; E66.9 Obesity, unspecified; Z68.27 Body mass index [BMI] 27.0-27.9, adult; Z79.82 Long term (current) use of aspirin; Z79.84 Long term (current) use of oral hypoglycemic drugs; Z79.899 Other long term (current) drug therapy; Z88.7 Allergy status to serum and vaccine; Z90.49 Acquired absence of other specified parts of digestive tract; Z91.81 History of falling; Z96.652 Presence of left artificial knee joint; Z80.3 Family history of malignant neoplasm of breast
CPT/HCPCS: 96366 ×3; 96376 ×2; 96365; 99291; 36415; 93005; 93306; 85379; 83880; 80061; 80053; 83735; 84484; 85025 ×2; 85610; 85730 ×2; 73030; 71045; 71275; G0378 ×2; J1644 ×2; Q9967

== ENCOUNTER 2019-06-17 07:56 | Day surgery (SDC) | payer MEDICARE ==
[2019-06-16 09:10] VITALS: BMI 28.3
[~2019-06-17 07:56] MED LIST changes: +ALPRAZolam 0.5 MG TAB PO PRN; -ASPIRIN 325 MG TAB PO ONE; +ASPIRIN 325 MG TAB PO STA; +ATORVASTATIN 80 MG TAB PO STA; +NITROGLYCERIN SL TABS 0.4 MG TAB SUBLINGUAL PRN
[2019-06-17] MEDS ORDERED: SODIUM CHLORIDE 0.9% 1,000 ML in EMPTY BAG 1 BAG IV ONE (08:00)
[2019-06-17 08:32] VITALS: PULSE 64; RESP 20; TEMP 97.9
[2019-06-17 08:42] LABS: Glucose,Whole Blood 202 mg/dL (75-99)
[2019-06-17] MEDS ORDERED: LIDOCAINE 1% INJ 10MG/ML (20 ML MDV) ONE (12:03)
[2019-06-17] MEDS ORDERED: MIDAZOLAM PF (FBP) 2 MG/2 ML VIAL IVP ONE (12:31)
[2019-06-17] MEDS ORDERED: LIDOCAINE 1% INJ 10MG/ML (20 ML MDV) SQ ONE (12:37)
[2019-06-17] MEDS ORDERED: IOPAMIDOL-370 100ML BTL INJ ONE (12:54)
[2019-06-17 13:46] LABS: Glucose,Whole Blood 152 mg/dL (75-99)
[2019-06-17] MEDS ORDERED: RX INFO: IV CONTRAST WAS GIVEN 1 EACH MISC MISCELLANE PRN (14:00)
[2019-06-17 18:14] LABS: Glucose,Whole Blood 261 mg/dL (75-99)
[2019-06-17] MEDS ORDERED: INSULIN ASPART (NovoLOG) 100 UNIT/ML VIAL SQ ONE (18:33)
[2019-06-17 19:30] VITALS: BP 145/70
--- NOTE | 2019-06-17 20:52 | CC ---
CARDIAC CATHETERIZATION REPORT DATE OF SERVICE: 06/17/2019 PROCEDURE: Left heart catheterization and coronary angiography. PERFORMED BY: Dr. Nir Wen. CLINICAL INFORMATION: Mr. Forrest Samayoa is an 84-year-old gentleman with history of mild to moderate aortic stenosis, and no significant CAD. He came into the office with complaints of chest tightness and pressure. He was recently in the hospital and discharged with. He had a negative troponins. He continued to have chest pressure with activity radiating to both upper extremities. He was advised coronary angiography after extensive discussion with the patient and and family regarding risks, benefits, and options. He understood all details and wished to proceed with the procedure. PROCEDURE NOTE: Under local anesthesia and strict aseptic precautions, a 6-Maori introducer was placed in the right femoral artery. Using standard Susie catheters, I performed coronary angiography and a pigtail catheter was used to check LV pressure but LV gram was not performed. Sheath was taken out and manual compression used to secure hemostasis. He was sent to the room in stable condition. ANESTHESIA: Moderate conscious sedation time was 22 minutes. Patient administered Versed. His oxygen saturation, hemodynamics and EKG were monitored closely. CARDIAC CATHETERIZATION FINDINGS: The left ventricle end-diastolic pressure was about 12 mmHg and there was no gradient across aortic valve. CORONARY ANGIOGRAPHY FINDINGS: RIGHT CORONARY ARTERY: Large dominant, disease-free vessel that has no significant disease and distally it continues as a PDA branch. This appears to be more or less a codominant vessel. PLV seems to come off from the circumflex. RCA has no significant disease. LEFT MAIN CORONARY ARTERY: Short vessel, no significant disease, immediately bifurcates into LAD and circumflex. LEFT ANTERIOR DESCENDING CORONARY ARTERY: Good caliber vessel extends along the anterior wall, gives off septal and diagonal branches, has minor irregularities. No significant disease. Runs all the way to the apex, supplies a sizable amount of myocardium. LEFT POSTERIOR CIRCUMFLEX CORONARY ARTERY: This is a codominant vessel, gives off a single obtuse marginal proximally and other 2 small obtuse marginals and distally continues as a posterolateral branch, has no significant disease, has minor irregularities. This is a good size, good caliber and good distribution circumflex vessel. Left ventriculogram was not performed. Left ventricular end-diastolic pressure was about 8 mmHg and there was a gradient of about 25 mmHg across the aortic valve on pullback pressures. FINAL IMPRESSION: This patient has mild to moderate aortic stenosis with a gradient of 25 mmHg across the aortic valve on a pullback. End-diastolic pressure is about 8-9 mmHg. The patient has a codominant system. No significant obstructive coronary artery disease. RECOMMENDATIONS: Findings were discussed with the patient and family. Continued medical therapy with risk factor modification advised. Patient can be discharged later today after full hemostasis is secured. We will see him in the office in the next 7-10 days. MMODL / IJN: [id number] /
== END 2019-06-17 19:10 | disposition home or self-care (01) ==
LOC: CATHCVL 07:56
PROVIDERS: ATTEND Internal Medicine Interventional Cardiology
DX: I35.0 Nonrheumatic aortic (valve) stenosis (principal); I20.0 Unstable angina; I10 Essential (primary) hypertension; E11.9 Type 2 diabetes mellitus without complications; E78.5 Hyperlipidemia, unspecified; E78.00 Pure hypercholesterolemia, unspecified; Z79.84 Long term (current) use of oral hypoglycemic drugs; Z79.82 Long term (current) use of aspirin; Z79.890 Hormone replacement therapy; Z79.899 Other long term (current) drug therapy
CPT/HCPCS: 93458; C1769 ×3; C1894; J2001; Q9967; J2250

== ENCOUNTER 2019-07-11 18:20 | Emergency (ER) | payer MEDICARE ==
[2019-07-11 18:40] VITALS: BP 152/77; PULSE 68; RESP 16; TEMP 97.9
[2019-07-11] MEDS ORDERED: DIPH,PERTUS(ACELL)TETVAC-LF 0.5 ML VIAL IM ONE (19:44)
[2019-07-11] MEDS ORDERED: LIDOCAINE 1% INJ 10MG/ML (20 ML MDV) SQ ONE (19:44)
--- NOTE | 2019-07-11 20:41 | ED ---
Wound/Laceration HPI - General Source: patient Mode of arrival: ambulatory Limitations: no limitations <Soledad Frank - Last Filed: 07/12/19 19:44> <Lars Cuevasah Yehuda - Last Filed: 07/15/19 22:56> - General Chief Complaint: Wound/Laceration Stated Complaint: wrist lac Time Seen by Provider: 07/11/19 19:27 - History of Present Illness Initial Comments: 84-year-old male presenting for evaluation of wrist laceration. Patient states he was trimming plants with a razor when he accidentally cut his left wrist he states that it was vertical and does not appear very deep however it would not stop bleeding he states that this occurred at 3 PM. When it persisted to bleed into the afternoon patient felt he needed to come to emergency department for suture repair. Patient states the bleeding has slowed down since he has arrived in the emergency department. Patient is unsure of his last tetanus. Patient denies any numbness tingling loss sensation decreased range of motion or pallor of the extremity. Patient denies any other areas of laceration. Patient denies any suicidal ideations or intentional harm. Remaining review of system negative. Upon arrival patient appears well no signs of acute distress. (Soledad Frank) - Related Data Home Medications Medication Instructions Recorded Confirmed Aspirin 81 mg PO DAILY 02/14/14 06/17/19 Ezetimibe [Zetia] 10 mg PO DAILY 02/14/14 06/16/19 Metoprolol Succinate [Toprol XL] 25 mg PO DAILY 02/14/14 06/16/19 Ramipril [Altace] 5 mg PO DAILY 02/14/14 06/16/19 Rosuvastatin Calcium [Crestor] 5 mg PO HS 02/14/14 06/16/19 Testosterone Cypionate 200 mg IM Q30D 02/14/14 06/17/19 [Depo-Testosterone] glipiZIDE [Glucotrol XL] 2.5 mg PO DAILY 02/14/14 06/16/19 metFORMIN HCL 500 mg PO TID 02/14/14 06/17/19 sitaGLIPtin [Januvia] 100 mg PO DAILY 02/14/14 06/16/19 Glucosam/Dhaval-Msm1/C/Kamar/Bosw 1 tab PO DAILY 06/09/19 06/16/19 [Glucosamine-Chondroitin Tablet] Multivitamins, Thera [Multivitamin 1 tab PO DAILY 06/09/19 06/16/19 (formulary)] [place]-3 Fatty Acids/Fish Oil 1 each PO DAILY 06/16/19 06/16/19 [[place]-3 Fish Oil 1,200 mg Sfgl] Previous Rx's Medication Instructions Recorded amLODIPine BESYLATE [Norvasc] 10 mg PO DAILY #30 tab 02/17/14 Allergies Allergy/AdvReac Type Severity Reaction Status Date / Time flu shot Allergy Unknown Unknown Uncoded 07/11/19 18:40 Review of Systems ROS Other: All systems not noted in ROS Statement are negative. <Soledad Frank - Last Filed: 07/12/19 19:44> ROS Other: All systems not noted in ROS Statement are negative. <Jacquelyn Cuevas - Last Filed: 07/15/19 22:56> ROS Statement: Those systems with pertinent positive or pertinent negative responses have been documented in the HPI. Past Medical History Past Medical History: Coronary Artery Disease (CAD), Chest Pain / Angina, Diabetes Mellitus, Hyperlipidemia, Hypertension, Osteoarthritis (OA) Additional Past Medical History / Comment(s): Aortic valve disorder - leaky History of Any Multi-Drug Resistant Organisms: None Reported Past Surgical History: Cholecystectomy, Heart Catheterization, Hernia Repair, Orthopedic Surgery Additional Past Surgical History / Comment(s): carpel tunnel surgery right hand, left knee total replacement Past Anesthesia/Blood Transfusion Reactions: No Reported Reaction Past Psychological History: No Psychological Hx Reported Smoking Status: Never smoker Past Alcohol Use History: None Reported Past Drug Use History: None Reported - Past Family History Mother Family Medical History: Cancer Additional Family Medical History / Comment(s): Breast <Soledad Frank - Last Filed: 07/12/19 19:44> General Exam Limitations: no limitations <Soledad Frank - Last Filed: 07/12/19 19:44> - General Exam Comments Initial Comments: General: The patient is awake and alert, in no distress, and does not appear acutely ill. Eye: +3 mm pupils are equal, round and reactive to light, extra-ocular movements are intact. No nystagmus. There is normal conjunctiva bilaterally. No signs of icterus. Cardiovascular: There is a regular rate and rhythm. No murmur, rub or gallop is appreciated. Respiratory: Lungs are clear to auscultation, respirations are non-labored, breath sounds are equal. No wheezes, stridor, rales, or rhonchi. Musculoskeletal: Normal ROM, no tenderness. Strength 5/5. Sensation intact. Radial pulses equal bilaterally 2+. Neurological: A&O x 3. CN II-XII intact grossly, There are no obvious motor or sensory deficits. Coordination appears grossly intact. Speech is normal. Skin: Skin is warm and dry and no rashes. Laceration of left ventral aspect vertical, appears superifical no exposure of tendon. no FB. 2.5cm. No wrist drop Psychiatric: Cooperative, appropriate mood & affect, normal judgment. (Soledad Frank) Course Vital Signs 07/11/19 18:38 Temperature 97.9 F Pulse Rate 68 Respiratory 16 Rate Blood Pressure 152/77 O2 Sat by Pulse 98 Oximetry Procedures - Laceration Laceration #1 Consent Obtained: verbal consent Indication: laceration Site: upper extremity Size (cm): 3 (2.5) Description: linear Depth: simple, single layer Anesthetic Used: lidocaine 1% Anesthesia Technique: local infiltration Amount (mls): 3 Pre-repair: wound explored, irrigated extensively, deep structures intact Type of Sutures: nylon Size of Sutures: 4-0 Number of Sutures: 7 Technique: simple, interrupted Patient Tolerated Procedure: well, no complications <Soledad Frank - Last Filed: 07/12/19 19:44> - Laceration Laceration #1 Additional Comments: irrigated, cleansed with iodine. (Soledad Frank) Medical Decision Making <Soledad Frank - Last Filed: 07/12/19 19:44> <Jacquelyn Cuevas - Last Filed: 07/15/19 22:56> - Medical Decision Making Very well-appearing 84-year-old male presented for left wrist laceration. Patient has superficial laceration approximately 2.5 cm on physical examination. No evidence of exposure of underlying structures or foreign body. Patient's tetanus is updated in the emergency department. Patient neurovascularly intact. Strong pulses with capillary refill less than 3 seconds of the affected extremity. After wound was extensively cleansed and irrigated wound edges were approximated using 7 nylon 4.0 sutures.Patient tolerated procedure well. At this time after discussing the case with attending provider I feel patient is stable for discharge with outpatient PCP f/u adn return for sutrue removal in 7-10 days. (Soledad Frank) I was available for consultation in the emergency department. The history and physical exam were done by the midlevel provider. I was consulted for this patients care. I reviewed the case with the midlevel provider and based on their presentation of the patient, I agree with the assessment, medical decision making and plan of care as documented. Chart was dictated using [employer] dictation software. Attempts were made to correct any dictation errors however some typographical errors may persist. (Jacquelyn Cuevas) Disposition Is patient prescribed a controlled substance at d/c from ED?: No Time of Disposition: 20:41 <Soledad Frank - Last Filed: 07/12/19 19:44> <Jacquelyn Cuevas - Last Filed: 07/15/19 22:56> Clinical Impression: Laceration of left wrist Disposition: HOME SELF-CARE Condition: Good Instructions (If sedation given, give patient instructions): Care For Your Stitches (ED), Laceration (ED) Additional Instructions: Please use medication as discussed. Please follow-up for suture removal here in ER in 7-10 days. Please return to emergency room if the symptoms increase or worsen or for any other concerns, redness, swelling, drainage, increasing pain. Referrals: Bull Virgen MD [Primary Care Provider] - 1-2 days
== END 2019-07-11 20:55 | disposition home or self-care (01) ==
LOC: EC 18:20
DX: S61.512A Laceration without foreign body of left wrist, initial encounter (principal); I25.119 Atherosclerotic heart disease of native coronary artery with unspecified angina pectoris; E11.9 Type 2 diabetes mellitus without complications; E78.5 Hyperlipidemia, unspecified; I10 Essential (primary) hypertension; M19.90 Unspecified osteoarthritis, unspecified site; Z79.82 Long term (current) use of aspirin; Z79.84 Long term (current) use of oral hypoglycemic drugs; Z79.899 Other long term (current) drug therapy; Z23 Encounter for immunization; Z88.7 Allergy status to serum and vaccine; Z95.5 Presence of coronary angioplasty implant and graft; Z96.652 Presence of left artificial knee joint; W26.8XXA Contact with other sharp object(s), not elsewhere classified, initial encounter; Y93.H2 Activity, gardening and landscaping
CPT/HCPCS: 99282; 90471; 12001; 90715; J2001

== ENCOUNTER 2021-01-26 06:54 | Day surgery (SDC) | payer MEDICARE ==
[2021-01-20 15:17] VITALS: BMI 25.0
[~2021-01-26 06:54] MED LIST changes: +HEPARIN SODIUM,PORCINE 10,000 UNIT in SODIUM CHLORIDE 0.9% 1,000 ML IRRIGATION PRN; +HEPARIN SODIUM,PORCINE 2,500 UNIT in SODIUM CHLORIDE 0.9% 250 ML IRRIGATION PRN; +SODIUM CHLORIDE 0.9% 1,000 ML in EMPTY BAG 1 BAG IV ONE
[2021-01-26] MEDS ORDERED: SODIUM CHLORIDE 0.9% 1,000 ML IV ONE ×3 (07:28→12:04)
[2021-01-26 07:50] LABS: Glucose,Whole Blood 135 mg/dL (75-99)
[2021-01-26 08:02] VITALS: TEMP 98
[2021-01-26 08:15] LABS: Calcium 9.1 mg/dL (8.4-10.2)
[2021-01-26 08:17] LABS: Potassium 4.9 mmol/L (3.5-5.1)
[2021-01-26] MEDS ORDERED: fentaNYL (PF) 50 MCG/ML 2 ML AMP ONE (08:33)
[2021-01-26] MEDS: BENZOCAINE SPRAY 1 CAN TOPICAL ONE ×2 (08:51→09:14)
[2021-01-26] MEDS: MIDAZOLAM 2 MG/2 ML VIAL IV ONE ×2 (08:52→09:14)
[2021-01-26] MEDS ORDERED: fentaNYL (PF) 50 MCG/ML 2 ML AMP IV ONE (08:54)
[2021-01-26] MEDS ORDERED: MIDAZOLAM 2 MG/2 ML VIAL IV ONE (09:17)
[2021-01-26 09:29] VITALS: RESP 12
[2021-01-26] MEDS ORDERED: LIDOCAINE 1% INJ 10MG/ML (20 ML MDV) ONE (10:23)
--- NOTE | 2021-01-26 10:52 | P.TEE ---
Date of Procedure: 01/26/21 Description of Procedure(s): TRANSESOPHAGEAL ECHOCARDIOGRAM APPRENTICE COSMETOLOGIST: ALEXIS PRIETO MD, RPVI INDICATION: Aortic stenosis SEDATION: Conscious sedation with sedation in length of 15 minutes COMPLICATION: None PROCEDURE DESCRIPTION: After obtaining an informed consent, the patient was brought to transesophageal echocardiogram room. Pulse oximetry and heart monitors were attached to the patient. The patient throat was sprayed using lidocaine. The patient was turned into left lateral position. After that a bite guard was placed. After an appropriate conscious sedation was initiated, the transesophageal echocardiogram was advanced through a bite guard into the mid esophagus. A 2-D echocardiogram images, color Doppler images, continuous wave images, pulse-wave images, of various cardiac structure were performed. After that the transesophageal echocardiogram probe was advanced into the stomach and fixed to obtain transgastric view was. The probe was brought into the mid esophagus. Inter-atrial septum was interrogated using 2D images, color Doppler images, and then contrast study. After that transesophageal echocardiogram was withdrawn out and upon withdrawing the descending thoracic aorta all the way up to the arch was evaluated. FINDING: The left ventricular dimension and systolic function appeared to be within normal limits with ejection fraction appears to be in the range of 50-55%. The right ventricle appeared to be of normal size and function with the left atrium appears to be dilated. The left atrial appendage appeared to be intact without any evidence of thrombus. The interatrial septum appeared to be intact as well without any evidence of shunt. The aortic valve is thickened and calcified but the valve appeared to be trileaflet valve we obtained a planimetry aortic valve area of 1.5 cm and a peak gradient of 75 and mean gradient of 42 mmHg, finding consistent with severe aortic stenosis. The mitral valve seems to be also very thickened and calcified with evidence of moderate mitral regurgitation. There is moderate tricuspid regurgitation seen and mild pulmonic insufficiency. No evidence of pericardial effusion. The aortic root appeared to be mildly dilated. CONCLUSION: #1 severe aortic stenosis by area and gradient. The aortic valve area was 1.5 cm and a mean gradient was 42 mmHg #2 mildly dilated aortic root #3 thickened anterior and posterior mitral leaflets with moderate mitral regurgitation #4 mild to moderate tricuspid regurgitation #5 mild pulmonic insufficiency #6 normal left ventricular dimension and systolic function #7 normal right ventricular dimension and systolic function #8 no evidence of pericardial effusion
[2021-01-26] MEDS ORDERED: MIDAZOLAM 2 MG/2 ML VIAL IVP ONE (11:21)
[2021-01-26] MEDS ORDERED: LIDOCAINE 1% INJ 10MG/ML (20 ML MDV) SQ ONE (11:24)
[2021-01-26 11:56] LABS: O2 Sat Blood Gas 73.4 %
[2021-01-26 11:56] LABS: O2 Sat Blood Gas 74.6 %
[2021-01-26 11:57] LABS: O2 Sat Blood Gas 95.7 %
[2021-01-26] MEDS ORDERED: IOPAMIDOL-370 100ML BTL INJ ONE (12:03)
[2021-01-26] MEDS ORDERED: SODIUM CHLORIDE 0.9% 1,000 ML IV SCH (14:00)
--- NOTE | 2021-01-26 14:51 | CC ---
CARDIAC CATHETERIZATION REPORT DATE OF SERVICE: 01/26/2021. PROCEDURE: Right and left heart catheterization, coronary angiography. PERFORMED BY: Dr. Nir Wen. Moderate conscious sedation time was 45 minutes. Patient was administered Versed. Oxygen saturation, hemodynamics and EKG were monitored closely. CLINICAL INFORMATION: Mr. Forrest Samayoa is an 85-year-old gentleman with a known history of aortic stenosis. He also has hypertension, hyperlipidemia, type 2 diabetes. Because of a significant increase in gradient on the transthoracic echo and symptoms of shortness of breath, I recommended cardiac cath and transesophageal echo. The TE echo revealed moderate to severe aortic stenosis. He had a previous cardiac cath in 2019 which did not reveal significant obstructive CAD. He was brought in for the procedure electively after due discussion regarding risks, benefits, and options. PROCEDURE NOTE: Under local anesthesia and strict aseptic precautions, a 6-Cypriot introducer was placed in the right femoral artery. An 8-Cypriot introducer was placed in the right femoral vein. Right heart catheterization was performed. Hemodynamics obtained. Thermodilution cardiac output was obtained. Subsequently, coronary angiography was performed using standard Susie catheters and a pigtail catheter was used to check LV pressures and LV-gram was not performed. The sheath was taken out and manual compression used to secure hemostasis and he was sent to the room in stable condition. Results were discussed with the patient and his daughter. CARDIAC CATHETERIZATION FINDINGS: The right atrial pressure was 2 mmHg. Right ventricular pressure was 22/2. Pulmonary artery pressure was 22/5 with a mean of 11. Pulmonary capillary wedge pressure was 5 mmHg. The left ventricular end-diastolic pressure was 10 mmHg. The peak gradient between the aorta and left ventricle was about 28 mmHg. The thermodilution cardiac output was 5.5 L and Julian cardiac output was 7.5 L. The femoral arterial saturation was 95% and pulmonary arterial saturation was 74%. The findings above translated to moderate aortic stenosis. CORONARY ANGIOGRAPHY FINDINGS: RIGHT CORONARY ARTERY: This is a technically dominant vessel. Good caliber, good distribution. Distally gives off a PDA but not PLV branch. PDA is free of significant disease, supplies a fair amount of myocardium. LEFT MAIN CORONARY ARTERY: Very short vessel that immediately bifurcates into LAD and circumflex. No significant disease. There is mild calcification noted. LEFT ANTERIOR DESCENDING CORONARY ARTERY: Good caliber vessel extends along the anterior wall. In the distal 1/4 of the vessel, there is some diffuse disease, but otherwise LAD has really no significant disease. It gives off a diagonal branch in the midportion, free of significant disease. The distal half of the LAD has mild diffuse disease. Diagonal and the proximal half of LAD are completely free of significant disease. LEFT POSTERIOR CIRCUMFLEX CORONARY ARTERY: Technically a nondominant vessel, gives off one obtuse marginal proximally, 2 small ones in the middle and distally continues as a posterolateral branch, has minor irregularities, no significant disease. LEFT VENTRICULOGRAM: The left ventriculogram was not performed. FINAL IMPRESSION: This patient has a right dominant system, noncritical coronary artery disease with diffuse disease in the distal half of the LAD of no more than 40%. The circumflex is free of significant disease. RCA is free of significant disease. Left main is free of significant disease. Aortic stenosis appears to be moderate with a gradient of less than 30 mmHg across the aortic valve. The end-diastolic pressure is normal. Thermodilution and Julian cardiac outputs are normal. RECOMMENDATIONS: Findings were discussed with the patient and daughter. For now I am recommending continued medical therapy and based on his clinical progress, will make further recommendations down the road. For now, medical therapy is advised. No surgical intervention or percutaneous aortic valve intervention at this time. MMODL / IJN: [id number] /
[2021-01-26 17:20] VITALS: PULSE 69
[2021-01-26 17:21] VITALS: BP 135/62
== END 2021-01-26 18:10 | disposition home or self-care (01) ==
LOC: CATHCVL 06:54
PROVIDERS: ATTEND Internal Medicine Interventional Cardiology
DX: I08.3 Combined rheumatic disorders of mitral, aortic and tricuspid valves (principal); I25.110 Atherosclerotic heart disease of native coronary artery with unstable angina pectoris; I10 Essential (primary) hypertension; E78.5 Hyperlipidemia, unspecified; E11.9 Type 2 diabetes mellitus without complications; R09.89 Other specified symptoms and signs involving the circulatory and respiratory systems; E78.00 Pure hypercholesterolemia, unspecified; Z79.84 Long term (current) use of oral hypoglycemic drugs; Z79.82 Long term (current) use of aspirin; Z79.890 Hormone replacement therapy; Z79.899 Other long term (current) drug therapy
CPT/HCPCS: 93312; 93320; 93325; 93460; 80048; 85018; 82810; 87635; C1769 ×3; C1894 ×2; J2250; J2001; J3010; Q9967

== ENCOUNTER 2021-04-05 23:59 | Observation (INO) | payer MEDICARE ==
[2021-04-06 00:07] VITALS: RESP 18
--- NOTE | 2021-04-06 00:38 | XR ---
EXAMINATION TYPE: XR chest 2V DATE OF EXAM: 04/06/2021 COMPARISON: NONE HISTORY: Shoulder pain TECHNIQUE: 2 views FINDINGS: Heart and mediastinum are normal. Lungs are clear. Diaphragm is normal. Bony thorax is inta ct. There are chest leads. Costophrenic angles are clear. IMPRESSION: No active cardiopulmonary disease. Normal heart. No change.
[2021-04-06 00:48] LABS: Albumin 3.8 g/dL (3.5-5.0); Calcium 8.9 mg/dL (8.4-10.2); INR 0.9 (<1.2); Magnesium 1.9 mg/dL (1.6-2.3); Partial Thromboplastin Time 23.7 sec (22.0-30.0); Potassium 4.1 mmol/L (3.5-5.1); Prothrombin Time 10.1 sec (9.0-12.0); Total Bilirubin 0.3 mg/dL (0.2-1.3); Total Protein 6.5 g/dL (6.3-8.2)
[2021-04-06 00:51] LABS: Basophils # (A) 0.1 k/uL (0-0.2); Basophils % (A) 1 %; Eosinophils # (A) 1.3 k/uL (0-0.7); Eosinophils % (A) 10 %; HCT 39.2 % (39.0-53.0); HGB 13.5 gm/dL (13.0-17.5); Lymphocytes # (A) 1.8 k/uL (1.0-4.8); Lymphocytes % (A) 14 %; MCH 33.8 pg (25.0-35.0); MCHC 34.6 g/dL (31.0-37.0); MCV 97.7 fL (80.0-100.0); Mean Platelet Volume 7.1; Monocytes # (A) 0.9 k/uL (0-1.0); Monocytes % (A) 7 %; Neutrophils # (A) 8.7 k/uL (1.3-7.7); Neutrophils % (A) 67 %; Platelet Count 187 k/uL (150-450); RBC 4.01 m/uL (4.30-5.90); RDW 13.7 % (11.5-15.5)
--- NOTE | 2021-04-06 01:19 | ED ---
Chest Pain HPI - General Chief Complaint: Chest Pain Stated Complaint: Back/Chest Pain Time Seen by Provider: 04/06/21 00:12 Source: patient, family Mode of arrival: ambulatory Limitations: no limitations - History of Present Illness Initial Comments: This patient is a 86-year-old man who presents to be evaluated for symptoms to the left chest, left neck and left arm that is been going on intermittently for approximately 2 days now. Patient states the pain as an aching. He has not noted worsening or relieving factors. He has not noted any associated anginal symptoms. At time of history and physical there are no symptoms present. MD Complaint: chest pain Onset/Timin -: days(s) Pain Location: left chest Pain Radiation: LUE, neck Severity: mild Quality: aching Consistency: intermittent Improves With: nothing Worsens With: nothing Treatments Prior to Arrival: none - Related Data Home Medications Medication Instructions Recorded Confirmed Aspirin 81 mg PO HS 02/14/14 04/06/21 Metoprolol Succinate [Toprol XL] 25 mg PO HS 02/14/14 04/06/21 Rosuvastatin Calcium [Crestor] 5 mg PO HS 02/14/14 04/06/21 Testosterone Cypionate 200 mg IM Q14D 02/14/14 04/06/21 [Depo-Testosterone] metFORMIN HCL 500 mg PO AC-SUPPER 02/14/14 04/06/21 Canagliflozin [Invokana] 300 mg PO QAM 01/20/21 04/06/21 Dulaglutide [Trulicity] 1.5 mg SQ MO 01/20/21 04/06/21 Ramipril [Altace] 5 mg PO HS 04/06/21 04/06/21 metFORMIN HCL [Glucophage] 1,000 mg PO QAM 04/06/21 04/06/21 Allergies Allergy/AdvReac Type Severity Reaction Status Date / Time flu shot AdvReac Unknown Unknown Uncoded 04/06/21 06:51 Review of Systems ROS Statement: Those systems with pertinent positive or pertinent negative responses have been documented in the HPI. ROS Other: All systems not noted in ROS Statement are negative. Constitutional: Denies: fever, weakness ENT: Denies: throat pain Respiratory: Denies: cough, dyspnea Cardiovascular: Reports: as per HPI, chest pain. Denies: palpitations, orthopnea, edema, syncope Gastrointestinal: Denies: abdominal pain, nausea, vomiting, diarrhea Genitourinary: Denies: dysuria, hematuria Musculoskeletal: Denies: back pain Skin: Denies: rash Neurological: Denies: headache, weakness, numbness EKG Findings - EKG Results: EKG: interpreted by CONI, sinus rhythm (With PVCs, rate 90 bpm), normal axis, normal QRS, normal ST/T Past Medical History Past Medical History: Coronary Artery Disease (CAD), Chest Pain / Angina, Diabetes Mellitus, Hyperlipidemia, Hypertension, Osteoarthritis (OA) Additional Past Medical History / Comment(s): Aortic valve disorder - leaky History of Any Multi-Drug Resistant Organisms: None Reported Past Surgical History: Cholecystectomy, Heart Catheterization, Hernia Repair, J oint Replacement, Orthopedic Surgery Additional Past Surgical History / Comment(s): carpel tunnel surgery right hand, left knee total replacement Past Anesthesia/Blood Transfusion Reactions: No Reported Reaction Past Psychological History: No Psychological Hx Reported Smoking Status: Never smoker Past Alcohol Use History: Occasional Past Drug Use History: None Reported - Past Family History Mother Family Medical History: Cancer Additional Family Medical History / Comment(s): Breast General Exam Limitations: no limitations General appearance: alert, in no apparent distress Head exam: Present: atraumatic, normocephalic Eye exam: Present: normal appearance. Absent: scleral icterus, conjunctival injection Neck exam: Present: normal inspection, full ROM. Absent: tenderness Respiratory exam: Present: normal lung sounds bilaterally. Absent: respiratory distress, wheezes, rales, rhonchi, stridor, chest wall tenderness Cardiovascular Exam: Present: regular rate, normal rhythm, systolic murmur (Is a grade 4/6 harsh systolic ejection murmur, insistent with aortic stenosis). Absent: diastolic murmur, rubs, gallop GI/Abdominal exam: Present: soft. Absent: distended, tenderness, guarding, rebound, rigid, mass Extremities exam: Present: normal inspection, normal capillary refill. Absent: pedal edema, calf tenderness Back exam: Present: normal inspection. Absent: CVA tenderness (R), CVA tenderness (L) Neurological exam: Present: alert Skin exam: Present: warm, dry, intact, normal color. Absent: rash Course Vital Signs 04/06/21 04/06/21 04/06/21 00:00 03:00 06:00 Temperature 97.6 F Pulse Rate 81 76 71 Respiratory 18 18 18 Rate Blood Pressure 158/76 133/82 131/76 O2 Sat by Pulse 97 96 98 Oximetry 04/06/21 04/06/21 08:00 11:19 Temperature 98.2 F 98 F Pulse Rate 71 73 Respiratory 18 18 Rate Blood Pressure 139/75 120/70 O2 Sat by Pulse 97 98 Oximetry Disposition Clinical Impression: Chest pain Disposition: ADMITTED IP TO THIS HOSP Condition: Stable Is patient prescribed a controlled substance at d/c from ED?: No
[2021-04-06] MEDS ORDERED: NON FORMULARY DRUG (Dulaglutide [Trulicity] 1.5 MG/0.5 ML Pen.Injctr) SQ SCH (02:00)
--- NOTE | 2021-04-06 05:46 | P.HPIM ---
History of Present Illness H&P Date: 04/06/21 Chief Complaint: Chest pain 86-year-old male with hypertension and hyperlipidemia severe aortic stenosis Patient comes in complaining of left shoulder pain radiating to left arm and left neck and left side of the chest. He claimed that this been going on for couple days no specific precipitating or alleviating factor. He then doing some yard work over the past couple days. He comes in today due to worsening of that pain if her bedtime made him worry why the pain has not resolved over the past couple days and been getting worse despite taking Aleve which normally takes care of his joint aches and make him relax. 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 Upon reviewing patient's chart he had a left heart cath 2 months ago and recommendations of the time was to pursue medical management there was no significant disease. However patient does have severe aortic valve stenosis but he denies any dizziness lightheadedness or syncope or near-syncope. Patient is an avid biker he does bike long distances on regular basis with no limitations. Blood work overall was unremarkable creatinine elevated but stable Review of Systems Pertinent positives as noted in HPI. All other systems were reviewed and are negative Past Medical History Past Medical History: Coronary Artery Disease (CAD), Chest Pain / Angina, Diabetes Mellitus, Hyperlipidemia, Hypertension, Osteoarthritis (OA) Additional Past Medical History / Comment(s): Aortic valve disorder - leaky History of Any Multi-Drug Resistant Organisms: None Reported Past Surgical History: Cholecystectomy, Heart Catheterization, Hernia Repair, Joint Replacement, Orthopedic Surgery Additional Past Surgical History / Comment(s): carpel tunnel surgery right hand, left knee total replacement Past Anesthesia/Blood Transfusion Reactions: No Reported Reaction Past Psychological History: No Psychological Hx Reported Smoking Status: Never smoker Past Alcohol Use History: Occasional Past Drug Use History: None Reported - Past Family History Mother Family Medical History: Cancer Additional Family Medical History / Comment(s): Breast Medications and Allergies Home Medications Medication Instructions Recorded Confirmed Type Aspirin 81 mg PO DAILY 02/14/14 01/26/21 History Metoprolol Succinate [Toprol XL] 25 mg PO DAILY 02/14/14 01/26/21 History Rosuvastatin Calcium [Crestor] 5 mg PO HS 02/14/14 01/26/21 History Testosterone Cypionate 200 mg IM Q30D 02/14/14 01/26/21 History [Depo-Testosterone] metFORMIN HCL 500 mg PO AC-SUPPER 02/14/14 01/26/21 History Multivitamins, Thera [Multivitamin 1 tab PO DAILY 06/09/19 01/26/21 History (formulary)] Shamrock-3 Fatty Acids/Fish Oil 1 each PO DAILY 06/16/19 01/26/21 History [Sh[place]rock-3 Fish Oil 1,200 mg Sfgl] Ascorbic Acid [Vitamin C] 500 mg PO DAILY 01/20/21 01/26/21 History Canagliflozin [Invokana] 300 mg PO DAILY 01/20/21 01/26/21 History Dulaglutide [Trulicity] 1.5 mg SQ Q7D 01/20/21 01/26/21 History Pioglitazone [Actos] 15 mg PO DAILY 01/20/21 01/26/21 History metFORMIN HCL 1,000 mg PO DAILY 01/20/21 01/26/21 History Ezetimibe [Zetia] 10 mg PO DAILY 01/26/21 01/26/21 History Allergies Allergy/AdvReac Type Severity Reaction Status Date / Time flu shot Allergy Unknown Unknown Uncoded 04/06/21 00:07 Physical Exam Vitals: Vital Signs Temp Pulse Resp BP Pulse Ox 04/06/21 03:00 76 18 133/82 96 04/06/21 00:00 97.6 F 81 18 158/76 97 Intake and Output 04/05/21 04/05/21 04/06/21 14:59 22:59 06:59 Other: Weight 86.183 kg Constitutional: No acute distress, conversant, pleasant Eyes: Anicteric sclerae, moist conjunctiva, Pupils equal round reactive to light ENMT: NC/AT Oropharynx clear, no erythema, or exudates Neck: Supple, FROM, no masses, or JVD No carotid bruits No thyromegaly Lungs: Clear to auscultation Clear to percussion Normal respiratory effort, no accessory muscle use Cardiovascular: Heart regular in rate and rhythm, Systolic murmurs, no gallops, or rubs No peripheral edema Abdominal: Soft Nontender, no guarding, rebound or rigidity Abdomen moving with respiration Normoactive bowel sounds No hepatomegaly, No splenomegaly No palpable mass No abdominal wall hernia noted Skin: Normal temperature, tone, texture, turgor No induration No subcutaneous nodules No rash, lesions No ulcers Extremities: No digital cyanosis No clubbing Pedal pulses intact and symmetrical Radial pulses intact and symmetrical No calf tenderness Psychiatric: Alert and oriented to person, place and time Appropriate affect fair judgement Neuro Muscles Strength 5/5 in all 4 extremities Sensation to light touch grossly present throughout Cranial nerves II-XII grossly intact No focal sensory deficits Lymphatics: no palpable cervical or supraclavicular , or inguinal lymph nodes Results CBC & Chem 7: 04/06/21 00:27 04/06/21 00:27 Labs: Abnormal Lab Results - Last 24 Hours (Table) 04/06/21 04/06/21 Range/Units 00: 00:27 WBC 13.0 H (3.8-10.6) k/uL RBC 4.01 L (4.30-5.90) m/uL Neutrophils # 8.7 H (1.3-7.7) k/uL Eosinophils # 1.3 H (0-0.7) k/uL Sodium 136 L (137-145) mmol/L BUN 34 H (9-20) mg/dL Creatinine 1.49 H (0.66-1.25) mg/dL Glucose 185 H (74-99) mg/dL Assessment and Plan Assessment: Left-sided shoulder pain radiating to the neck arm and chest most likely musculoskeletal rule out acute coronary syndrome Trend troponins Cardiac monitoring Cardiology consult EKG no acute ST changes Initial troponins negative Resume home medications aspirin and statin Patient was counseled that this is unlikely to be related to his heart given the fact that he had a left heart cath 2 months ago showed no significant disease however patient was adamant about staying in the hospital to see his solar pool heating installer due to concerns regarding his aortic valve stenosis Chronic conditions Severity valve stenosis Hypertension Hyperlipidemia Diabetes mellitus Resume home medications Full code Anticipated length of stay less than 2 midnights Anticipated discharge to home DVT prophylaxis mechanical
[2021-04-06 08:42] LABS: Glucose,Whole Blood 149 mg/dL (75-99)
[2021-04-06] MEDS ORDERED: NON FORMULARY DRUG (Omega-3 Fatty Acids/Fish Oil [Omega-3 Fish Oil 1,200 Mg Sfgl] 1 EACH C PO SCH (09:00)
[2021-04-06] MEDS ORDERED: MULTIVITAMINS, THERA 1 EACH TAB PO SCH (09:00)
[2021-04-06] MEDS ORDERED: METOPROLOL SUCCINATE (ER) 25 MG TAB.ER.24H PO SCH (09:00)
[2021-04-06] MEDS ORDERED: ASPIRIN 81 MG PO SCH (09:00)
[2021-04-06] MEDS ORDERED: metFORMIN 500 MG TAB PO SCH ×2 (09:00→17:30)
[2021-04-06] MEDS ORDERED: EZETIMIBE 10 MG TAB PO SCH (09:00)
[2021-04-06] MEDS ORDERED: NON FORMULARY DRUG (Canagliflozin [Invokana] 300 MG Tablet) PO SCH (09:00)
[2021-04-06] MEDS ORDERED: ASCORBIC ACID 500 MG TAB PO SCH (09:00)
[2021-04-06] MEDS ORDERED: PIOGLITAZONE 15 MG TAB PO SCH (09:00)
--- NOTE | 2021-04-06 09:54 | P.DS ---
<Mike Gaona - Last Filed: 04/06/21 13:10> Providers Expected date of discharge: 04/06/21 Hospital Course: Discharge Diagnosis: Atypical chest pain, acute coronary event ruled out Left shoulder pain Hypertension Hyperlipidemia Aortic stenosis Type II [id number]-oyenzrffy diabetes mellitus Hospital Course: Patient is an 86-year-old male with a past medical history of hypertension, hyperlipidemia, aortic stenosis, and type II [id number]-[id number] diabetes mellitus. He presented to the emergency department this morning with a chief complaint of chest pain and left shoulder pain. Patient reports mild left shoulder pain radiating into his left anterior chest and neck beginning approximately 2 hours prior to arrival. He was seen and fully evaluated in the emergency department. Chest x-ray was negative for acute cardiopulmonary process. EKG showing sinus rhythm at 90 bpm with frequent PVCs, no T-wave or ST abnormalities noted showing no signs of acute ischemia. Patient was seen and fully evaluated by cardiology and an acute coronary event was ruled out. Patient reports significant improvement of left shoulder pain stating only mild irritation with movement but has full range of motion and no weakness. Patient cleared by cardiology and is medically stable for discharge home at this time. 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 He denied currently having any chest pain, palpitations, shortness of breath, dyspnea with exertion, or experiencing any numbness/tingling/weakness in his extremities. Patient ambulatory without assistance in room without any difficulties noted. Vital signs reviewed and stable. General: Nontoxic, no distress and appears stated age. Derm: Skin warm and dry, normal coloration for ethnicity. Head: Atraumatic, normocephalic and symmetric. Eyes: EOMs intact, no lid lag, and anicteric sclera Mouth: no lip lesions, mucus membranes moist Cardiovascular: regular rate and rhythm with normal S1S2, no murmur, positive posterior tibial pulses bilaterally, and cap refill < 2 seconds. Lungs: Respirations even, regular, and unlabored on room air. Lungs CTA bilaterally, no rhonchi, no rales, no wheezing, and no accessory muscle usage. Abdominal: soft, nontender to palpation, no guarding, no appreciable organomegaly Ext: ROM intact. No gross muscle atrophy, no edema, no contractures Neuro: Speech clear, face symmetrical and CN II-XII grossly intact with no noted focal neuro deficits Psych: Alert and oriented to person, place, time, and situation. Appropriate and pleasant affect. A total of 45 minutes of time were spent preparing this complex discharge summary. Patient Condition at Discharge: Stable Plan - Discharge Summary New Discharge Prescriptions: Continue metFORMIN HCL 500 mg PO AC-SUPPER Metoprolol Succinate [Toprol XL] 25 mg PO HS Rosuvastatin Calcium [Crestor] 5 mg PO HS Aspirin 81 mg PO HS Testosterone Cypionate [Depo-Testosterone] 200 mg IM Q14D Dulaglutide [Trulicity] 1.5 mg SQ MO metFORMIN HCL [Glucophage] 1,000 mg PO QAM Canagliflozin [Invokana] 300 mg PO QAM Ramipril [Altace] 5 mg PO HS Discharge Medication List Aspirin 81 mg PO HS 02/14/14 [History] Metoprolol Succinate [Toprol XL] 25 mg PO HS 02/14/14 [History] Rosuvastatin Calcium [Crestor] 5 mg PO HS 02/14/14 [History] Testosterone Cypionate [Depo-Testosterone] 200 mg IM Q14D 02/14/14 [History] metFORMIN HCL 500 mg PO AC-SUPPER 02/14/14 [History] Canagliflozin [Invokana] 300 mg PO QAM 01/20/21 [History] Dulaglutide [Trulicity] 1.5 mg SQ MO 01/20/21 [History] Ramipril [Altace] 5 mg PO HS 04/06/21 [History] metFORMIN HCL [Glucophage] 1,000 mg PO QAM 04/06/21 [History] Follow up Appointment(s)/Referral(s): Haydee Wen MD [STAFF PHYSICIAN] - 2 Weeks Stuart Castro MD [Primary Care Provider] - 1-2 days Activity/Diet/Wound Care/Special Instructions: Activity: As tolerated Diet: Heart healthy diet Special Instructions: Please follow up with Dr. Castro in 1-2 days and cardiololgy, Dr. Wen in 2 weeks. Thank you Discharge Disposition: HOME SELF-CARE <Bernadine Clayton - Last Filed: 04/06/21 19:50> Providers Date of admission: 04/06/21 01:49 Attending physician: Maryan Ramires MD Consults: 04/06/21 01:49 Consult Physician Routine Consulting Provider: Haydee Wen Consult Reason/Comments: chest pain Do you want consulting provider notified?: Yes Primary care physician: Stuart Castro MD Hospital Course: Mike Gaona NP rendered care for this patient independently, reviewed the findings and plan as documented in the note above. I did not physically speak with or examine the patient on this date. Seen by my partner same date
[2021-04-06 11:21] VITALS: BP 120/70; PULSE 73; TEMP 98
--- NOTE | 2021-04-06 11:45 | P.CRDCN ---
History of Present Illness History of present illness: HISTORY OF PRESENTING ILLNESS This is a pleasant 86-year-old male past medical history significant for severe aortic stenosis, dyslipidemia, type 2 diabetes, hypertension. He follows in the office with Dr. Wen. We have been asked to see in consultation for chest pain. Patient is seen and examined in the emergency Department, no acute distress. Patient states that he started having left shoulder pain yesterday and was ranging to his left arm, left neck, left chest area. He states that he's been having this for couple days. It worsens with movement. He denies any injury however he thinks that maybe when he was reaching for something that maybe he hurt his arm. His pain is nonexertional. He has no associated symptoms. No associated palpitations, shortness of breath, fatigue, weakness, lightheadedness, dizziness, syncope, diaphoresis. He states that he's just been concerned about chest pain with his aortic stenosis and states that he is just worried if anything is going on with his heart. He denies any symptoms of orthopnea or PND. He is a nonsmoker. He does occasionally take Aleve and this does help relieve the pain. He recently underwent cardiac catheterization on 01/26/2021 which revealed noncritical disease in the distal half the LAD of no more than 40%. Circumflex and RCA. 8 disease. No pulmonary hypertension, normal cardiac output, no shunt. Aortic stenosis appears to be moderately gradient of less than 30 mmHg. MALIA on revealed an EF of 50-55%, severe aortic stenosis with a mean gradient of 40 mmHg, mildly dilated aortic root, moderate mitral regurgitation, mild to moderate tricuspid regurgitation. DIAGNOSTICS EKG reveals sinus rhythm, frequent PVCs, heart rate 90, nonspecific ST ST-T wave abnormalities.. Chest xray no acute cardiopulmonary process. Laboratory reviewed, troponin negative 3, sodium 136, potassium 4.1, BUN 34, s gabo creatinine 1.49, magnesium 1.9, COVID-19 negative, WBC 13, hemoglobin 13.5, platelets 27 REVIEW OF SYSTEMS At the time of my exam: CONSTITUTIONAL: Denies fever or chills. CARDIOVASCULAR: + left sided chest pain, Denies shortness of breath, orthopnea, PND or palpitations. RESPIRATORY: Denies cough. GASTROINTESTINAL: Denies abdominal pain, diarrhea, constipation, nausea or vomiting. MUSCULOSKELETAL: +left neck pain and left sided shoulder pain with movement NEUROLOGIC: Denies numbness, tingling, headacbe or weakness. ENDOCRINE: Denies fatigue, weight change, polydipsia or polyurina. GENITOURINARY: Denies burning, hematuria or urgency with micturation. HEMATOLOGIC: Denies history of anemia or bleeding. PHYSICAL EXAMINATION Blood pressure 139/75 heart rate 71, febrile and maintaining oxygen saturation 98% on room air CONSTITUTIONAL: No apparent distress. HEENT: Head is normocephalic. Pupils are equal, round. Sclerae anicteric. Mucous membranes of the mouth are moist. No JVD. +Bilateral bruit CHEST EXAMINATION: Lungs are clear to auscultation. Chest tenderness with deep breathing HEART EXAMINATION: Regular rate and rhythm. S1, S2 heard. Systolic murmur ABDOMEN: Soft, nontender. Positive bowel sounds. EXTREMITIES: 2+ peripheral pulses, no lower extremity edema and no calf tenderness. SKIN: intact NEUROLOGIC EXAMINATION: Patient is awake, alert and oriented x3. ASSESSMENT Left sided chest, shoulder and neck pain, likely musculoskeltal. acute coronary syndrome has been ruled out Severe aortic stenosis Dyslipidemia Type 2 diabetes Hypertension. PLAN An acute coronary event has been ruled out with no EKG evidence of ischemia and negative cardiac enzymes. From cardiology perspective, patient's pain appears to be musculoskeletal. No further testing at this time. Patient is stable from a cardiology perspective. Patient should follow-up with Dr. Wen in the office Continue home cardiac medications Thank you kindly for this consultation. Nurse Practitioner note has been reviewed, I agree with a documented findings and plan of care. Patient was seen and examined. Past Medical History Past Medical History: Coronary Artery Disease (CAD), Chest Pain / Angina, Diabetes Mellitus, Hyperlipidemia, Hypertension, Osteoarthritis (OA) Additional Past Medical History / Comment(s): Aortic valve disorder - leaky History of Any Multi-Drug Resistant Organisms: None Reported Past Surgical History: Cholecystectomy, Heart Catheterization, Hernia Repair, Joint Replacement, Orthopedic Surgery Additional Past Surgical History / Comment(s): carpel tunnel surgery right hand, left knee total replacement Past Anesthesia/Blood Transfusion Reactions: No Reported Reaction Past Psychological History: No Psychological Hx Reported Smoking Status: Never smoker Past Alcohol Use History: Occasional Past Drug Use History: None Reported - Past Family History Mother Family Medical History: Cancer Additional Family Medical History / Comment(s): Breast Medications and Allergies Home Medications Medication Instructions Recorded Confirmed Type Aspirin 81 mg PO HS 02/14/14 04/06/21 History Metoprolol Succinate [Toprol XL] 25 mg PO HS 02/14/14 04/06/21 History Rosuvastatin Calcium [Crestor] 5 mg PO HS 02/14/14 04/06/21 History Testosterone Cypionate 200 mg IM Q14D 02/14/14 04/06/21 History [Depo-Testosterone] metFORMIN HCL 500 mg PO AC-SUPPER 02/14/14 04/06/21 History Canagliflozin [Invokana] 300 mg PO QAM 01/20/21 04/06/21 History Dulaglutide [Trulicity] 1.5 mg SQ MO 01/20/21 04/06/21 History Ramipril [Altace] 5 mg PO HS 04/06/21 04/06/21 History metFORMIN HCL [Glucophage] 1,000 mg PO QAM 04/06/21 04/06/21 History Allergies Allergy/AdvReac Type Severity Reaction Status Date / Time flu shot AdvReac Unknown Unknown Uncoded 04/06/21 06:51 Physical Exam Vitals: Vital Signs Temp Pulse Resp BP Pulse Ox 04/06/21 06:00 71 18 131/76 98 04/06/21 03:00 76 18 133/82 96 04/06/21 00:00 97.6 F 81 18 158/76 97 Intake and Output 04/05/21 04/06/21 04/06/21 22:59 06:59 14:59 Other: Weight 86.183 kg Results 04/06/21 00:27 04/06/21 00:27 Cardiac Enzymes 04/06/21 04/06/21 04/06/21 Range/Units 00:27 00:27 03:39 AST 28 (17-59) U/L Troponin I <0.012 <0.012 (0.000-0.034) ng/mL Coagulation 04/06/21 Range/Units 00:27 PT 10.1 (9.0-12.0) sec APTT 23.7 (22.0-30.0) sec CBC 04/06/21 Range/Units 00:27 WBC 13.0 H (3.8-10.6) k/uL RBC 4.01 L (4.30-5.90) m/uL Hgb 13.5 (13.0-17.5) gm/dL Hct 39.2 (39.0-53.0) % Plt Count 187 (150-450) k/uL Comprehensive Metabolic Panel 04/06/21 Range/Units 00:27 Sodium 136 L (137-145) mmol/L Potassium 4.1 (3.5-5.1) mmol/L Chloride 104 (98-107) mmol/L Carbon Dioxide 23 (22-30) mmol/L BUN 34 H (9-20) mg/dL Creatinine 1.49 H (0.66-1.25) mg/dL Glucose 185 H (74-99) mg/dL Calcium 8.9 (8.4-10.2) mg/dL AST 28 (17-59) U/L ALT 26 (4-49) U/L Alkaline Phosphatase 116 (38-126) U/L Total Protein 6.5 (6.3-8.2) g/dL Albumin 3.8 (3.5-5.0) g/dL Current Medications Generic Name Dose Route Start Last Admin Trade Name Freq PRN Reason Stop Dose Admin Ascorbic Acid 500 mg 04/06/21 09:00 Ascorbic Acid 500 Mg Tab PO DAILY [facility] Aspirin 81 mg 04/06/21 09:00 Aspirin 81 Mg PO DAILY [facility] Atorvastatin Calcium 10 mg 04/06/21 21:00 Atorvastatin 10 Mg Tab PO HS [facility] Ezetimibe 10 mg 04/06/21 09:00 Ezetimibe 10 Mg Tab PO DAILY [facility] Metformin HCl 500 mg 04/06/21 17:30 Metformin 500 Mg Tab PO AC-SUPPER [facility] Metformin HCl 1,000 mg 04/06/21 09:00 Metformin 500 Mg Tab PO DAILY [facility] Metoprolol Succinate 25 mg 04/06/21 09:00 Metoprolol Succinate (Er) 25 Mg Tab.Er.24h PO DAILY [facility] Multivitamins 1 each 04/06/21 09:00 Multivitamins, Thera 1 Each Tab PO DAILY [facility] Non-Formulary Medication 300 mg 04/06/21 09:00 Canagliflozin [Invokana] PO DAILY [facility] Non-Formulary Medication 1.5 mg 04/06/21 02:00 04/06/21 03:50 Dulaglutide [Trulicity] SQ Not Given Q7D [facility] Pioglitazone HCl 15 mg 04/06/21 09:00 Pioglitazone 15 Mg Tab PO DAILY [facility] Sodium Chloride 10 ml 04/06/21 09:00 Sodium Chloride 0.9% Flush 10 Ml Syringe IV BID [facility] Intake and Output 04/05/21 04/06/21 04/06/21 22:59 06:59 14:59 Other: Weight 86.183 kg 04/06/21 00:27 04/06/21 00:27
[2021-04-06] MEDS ORDERED: ATORVASTATIN 10 MG TAB PO SCH (21:00)
[2021-04-07] MEDS ORDERED: ASPIRIN 325 MG TAB PO SCH (09:00)
== END 2021-04-06 11:17 | disposition home or self-care (01) ==
LOC: EC 23:59 → 6NMEDSUR 04-06 01:49
PROVIDERS: ADMIT Internal Medicine; ATTEND Internal Medicine
DX: R07.89 Other chest pain (principal); I08.3 Combined rheumatic disorders of mitral, aortic and tricuspid valves; E11.9 Type 2 diabetes mellitus without complications; I10 Essential (primary) hypertension; I49.3 Ventricular premature depolarization; E78.5 Hyperlipidemia, unspecified; I25.10 Atherosclerotic heart disease of native coronary artery without angina pectoris; M19.90 Unspecified osteoarthritis, unspecified site; M25.512 Pain in left shoulder; M54.2 Cervicalgia; R79.89 Other specified abnormal findings of blood chemistry; Z20.822 Contact with and (suspected) exposure to COVID-19; Z79.82 Long term (current) use of aspirin; Z79.84 Long term (current) use of oral hypoglycemic drugs; Z79.899 Other long term (current) drug therapy; Z88.7 Allergy status to serum and vaccine; Z90.49 Acquired absence of other specified parts of digestive tract; Z96.652 Presence of left artificial knee joint; Z98.890 Other specified postprocedural states; Z80.3 Family history of malignant neoplasm of breast
CPT/HCPCS: 99285; 36415; 93005; 80053; 83735; 84484; 85025; 85610; 85730; 87635; 71046; G0378

== ENCOUNTER → 2021-05-05 | Outpatient (CLI) | payer MEDICARE ==
--- NOTE | 2021-05-05 13:08 | XR ---
EXAMINATION TYPE: XR knee complete LT DATE OF EXAM: 05/05/2021 COMPARISON: None HISTORY: 86-year-old male M25.562 TECHNIQUE: 3 views FINDINGS: Images show left total knee arthroplasty. Both distal femoral proximal tibial components of the prost hesis appear well seated without periprosthetic fracture. Suggestion of underlying moderate joint eff usion. Extensor mechanism appears intact. Mild anterior infrapatellar soft tissue swelling. Vascular calcifications. IMPRESSION: There is suggestion of a moderate underlying joint effusion but otherwise with an uncomplicated appea elva of the left total knee arthroplasty.
== END | disposition home or self-care (01) ==
LOC: RADXRMAIN 10:54
PROVIDERS: ATTEND Nurse Practitioner Adult Health
DX: M25.562 Pain in left knee (principal); Z96.652 Presence of left artificial knee joint

== ENCOUNTER → 2021-05-28 | Outpatient (CLI) | payer MEDICARE ==
--- NOTE | 2021-05-29 04:14 | MR ---
EXAMINATION TYPE: MR knee LT wo con DATE OF EXAM: 05/28/2021 COMPARISON: Left knee x-ray 05/05/2021 HISTORY: Left knee pain, pain behind kneecap, and swelling due to fall. Total knee replacement 5 year s ago. Multiplanar multiecho imaging of the left knee with no contrast. There is extensive metal artifact. This obscures the prosthetic knee joint to a large extent. There i s no evidence of a soft tissue mass involving the proximal tibia. Proximal tibia and fibula appear in tact. I do not see any significant knee joint effusion. There is no evidence of any popliteal cyst. T here is no evidence of a posterior mass. The patella tendon appears intact. Patella appears intact. IMPRESSION: Knee prosthesis. No complicating process seen. No evidence of joint effusion. No fracture seen.
== END | disposition home or self-care (01) ==
LOC: RADMRIMAIN 08:15
PROVIDERS: ATTEND Internal Medicine
DX: M25.562 Pain in left knee (principal); W19.XXXA Unspecified fall, initial encounter; Z96.652 Presence of left artificial knee joint

== ENCOUNTER → 2023-04-24 | Outpatient (CLI) | payer MEDICARE | END | disposition home or self-care (01) | LOC: LABWHC1 07:12 | PROVIDERS: ATTEND Urology | DX: E29.1 Testicular hypofunction (principal) | CPT/HCPCS: 36415; 84402; 84403 ==